=== PATIENT | female | born 1990 | race Caucasian/White ===

== ENCOUNTER 2016-12-06 22:25 | Emergency (ER) | payer MEDICAID ==
[~2016-12-06] VITALS: Ht 170.2 cm; Wt 167.4 kg
[~2016-12-06 22:25] MED LIST: ACET-62 PO; LEVE500T9 PO; WARF5TAB6 PO
--- OUTSIDE RECORDS SUMMARY | 2016-12-06 22:31 | XMS REPORT | Continuity of Care Document ---
Author Author [facility] Organization [facility] Address Unknown Phone Unavailable Care Team Providers Care J2Ee Android Developer Name Role Phone BREN MISSY Primary Care Physician [phone] Insurance Providers Guarantor Anusha Almazan Address [address] [place] [address] Email [email or web address] Payer [facility] Policy Number [id number] Subscriber's Name Anusha Almazan Tre Relationship 18 Self Effective Date 16 Expiration Date 16 Chief Complaint and Reason for Visit Chief Complaint Lower Extremity Pain Reason for Visit Left knee pain Problems Active Problems Medical Problem Onset Date Status Eclampsia Unknown Morbid (severe) obesity due to excess calories Unknown Supratherapeutic INR Unknown Past Problems Medical Problem Onset Date Anticoagulation goal of INR 2 to 3 Unknown Atypical chest pain Unknown Elevated INR Unknown Intercostal muscle pain Unknown Left knee pain Unknown Low back pain Unknown Mechanical back pain Unknown Patient left without being seen Unknown Placenta previa Unknown Unknown Unknown Pulmonary emboli Unknown Vaginal spotting Unknown Medications Current Home Medications Medication Dose Units Route Directions Days Qty Instructions Start Date Acetaminophen 500 Mg Tablet 1,000 Mg Oral Three Times A Day as needed for Pain 06/18/16 Levetiracetam (Keppra) 500 Mg Tablet 500 Mg Oral Twice A Day Warfarin Sodium 5 Mg Tablet 5 Mg Oral Daily 11/27/16 Past Home Medications Medication Directions Ordered Status Aspirin/Acetaminophen/Caffeine (Excedrin Extra Strength Caplet) 1 Each Tablet, 09/17/16 Discontinued Baclofen 10 Mg Tablet, 10 Mg Oral Three Times A Day 10/26/16 Discontinued Cyclobenzaprine Hcl 10 Mg Tablet, 10 Mg Oral Three Times A Day as needed for Muscle Spasm 06/23/16 Discontinued Diphenhydramine Hcl (Benadryl) 25 Mg Capsule, 2 Cap Oral Every 6 Hours Discontinued Hydrocodone/Acetaminophen ([place] 5-325 Tablet) 5-325 Tablet, 1 Tab Oral Every 4 Hours Prn 10/26/16 Discontinued Ibuprofen 200 Mg Tablet, 600 Mg Oral Every 6 Hours as needed for Pain Discontinued Nitrofurantoin Monohyd/M-Cryst (Macrobid 100 Mg Capsule) 100 Mg Capsule, 1 Cap Oral Twice Daily With Meals 10/26/16 Discontinued Social History Social History Problem Response Recorded Date/Time Onset Date Status Hx Substance Use No 12/01/2016 11:54pm Not Applicable Not Applicable Hx Alcohol Use No 12/01/2016 11:54pm Not Applicable Not Applicable Query Response Start Date Stop Date Smoking Status Never smoker Hospital Discharge Instructions No hospital discharge instructions. Plan of Care Discharge Date 12/01/16 11:59pm Disposition 01 DISCHARGED HOME, SELF-CARE Condition at Discharge Stable Instructions/Education Provided Knee Pain (ED) Prescriptions See Medication Section Referrals MISSY CORREIA Address: [address] [place] [id number] NILES RIGGINS APRN Address: [address] [place] [id number] Additional Instructions/Education Your ultrasound today was normal. I do want you to continue to take the Coumadin as prescribed. Follow up with Dr. Qureshi with [facility] this week with any further issues/concerns. Care Plan and Goals Physician Care Plan Problem:Left Knee Pain Goal: Follow up with primary care provider Instructions: Take medications and follow care plan as discussed/written Functional Status No functional status results. Allergies, Adverse Reactions, Alerts Allergen Type Severity Reaction Status Last Updated Morphine Allergy Unknown ITCHING Active 12/01/16 Phenylephrine Allergy Unknown Active 12/01/16 Cefaclor Allergy Unknown Active 12/01/16 Nalbuphine Allergy Unknown Active 12/01/16 Brompheniramine Allergy Unknown Active 12/01/16 Ceftriaxone Allergy Unknown Active 12/01/16 Immunizations Query Response on File Recorded Date/Time Hx Tetanus Toxoid Vaccination Yes 12/01/16 11:55pm DTaP Vaccine History 2016 12/01/16 11:54pm Influenza Vaccine Hx NOT YET THIS SEASON 11/30/16 6:44pm Tdap Vaccine Hx 201612/01/16 11:55pm Vital Signs Acute Vital Signs Vital Response Date/Time Temperature (Fahrenheit) 97.9 deg F (96.8 - 99.1) 12/01/2016 11:59pm Temperature (Calculated Celsius) 36.34215 degrees C (36.0 - 37.3) 12/01/2016 11:59pm Pulse Rate (adult) 74 bpm (60 - 100) 12/01/2016 11:59pm Respiratory Rate 20 breaths/min (10 - 20) 12/01/2016 11:59pm O2 Sat by Pulse Oximetry 97 % (90 - 100) 12/01/2016 11:59pm Blood Pressure 115/58 mm Hg 12/01/2016 11:59pm Height (Feet) 5 feet 12/01/2016 9:33pm Height (Inches) 7.00 inches 12/01/2016 9:33pm Weight (Kilograms) 167.900 kg 12/01/2016 9:33pm Body Mass Index (BMI) 57.0 12/01/2016 9:33pm Results Laboratory Results Test Name Result Units Flags Reference Collection Date/Time Result Date/ Time Comments Urinalysis Comment MICROSCOPIC NOT IND. 09/17/2016 10:08pm 2015 10:13pm Total Bilirubin 0.80 MG/DL 0.20-1.30 10/26/2016 1:00am 10/26/2016 1: 16am Alkaline Phosphatase 78 U/L 38-126 10/26/2016 1:00am 10/26/2016 1:16am Total Protein 7.2 G/DL 6.3-8.2 10/26/2016 1:00am 10/26/2016 1:16am Albumin 3.7 G/DL 3.5-5.0 10/26/2016 1:00am 10/26/2016 1:16am Globulin 3.5 G/DL 2.4-3.6 10/26/2016 1:00am 10/26/2016 1:16am Albumin/Globulin Ratio 1.1 RATIO 1.1-2.2 10/26/2016 1:00am 10/26/2016 1 :16am Aspartate Amino Transf (AST/SGOT) 20 U/L 14-36 10/26/2016 1:00am 2016 1:16am Alanine Aminotransferase (ALT/SGPT) 44 U/L 9-52 10/26/2016 1:00am 10/26 1:16am Urine Collection Type CLEANCATCH-MIDSTREAM 10/26/2016 12:52am 10/26 1:08am Urine Color YELLOW YELLOW 10/26/2016 12:52am 10/26/2016 1:08am Urine Turbidity CLEAR CLEAR 10/26/2016 12:52am 10/26/2016 1:08am Urine Specific [place] 1.020 1.015-1.025 10/26/2016 12:52am 2016 1:08am Urine pH 5.5 5.0-8.0 10/26/2016 12:52am 10/26/2016 1:08am Urine Leukocyte Esterase NEGATIVE NEGATIVE 10/26/2016 12:52am 2016 1:08am Urine Nitrite NEGATIVE NEGATIVE 10/26/2016 12:52am 10/26/2016 1:08am Urine Protein NEGATIVE NEGATIVE 10/26/2016 12:52am 10/26/2016 1:08am Urine Glucose (UA) NEGATIVE NEGATIVE 10/26/2016 12:52am 10/26/2016 1: 08am Urine Ketones NEGATIVE NEGATIVE 10/26/2016 12:52am 10/26/2016 1:08am Urine Urobilinogen 0.2 EU/DL NORMAL 10/26/2016 12:52am 10/26/2016 1: 08am Urine Bilirubin NEGATIVE NEGATIVE 10/26/2016 12:52am 10/26/2016 1: 08am Urine Blood 1+ A NEGATIVE 10/26/2016 12:52am 10/26/2016 1:08am Urine WBC NONE SEEN /HPF 0-5 10/26/2016 12:52am 10/26/2016 1:17am Urine RBC 1-3 /HPF 0-3 10/26/2016 12:52am 10/26/2016 1:17am Urine Bacteria NONE SEEN NEGATIVE 10/26/2016 12:52am 10/26/2016 1: 17am Urine Culture Indicated CULT NOT INDICATED 10/26/2016 12:52am 10/26 1:17am White Blood Count 8.3 T/MM3 4.5-11.0 11/10/2016 11:54pm 11/11/2016 12: 07am Red Blood Count 3.83 M/MM3 L 4.00-5.20 11/10/2016 11:54pm 11/11/2016 12: 07am Hemoglobin 10.2 GM/DL L 12-16 11/10/2016 11:54pm 11/11/2016 12:07am Hematocrit 32.2 % L 36-46 11/10/2016 11:54pm 11/11/2016 12:07am Mean Corpuscular Volume 84.1 UM3 80-100 11/10/2016 11:54pm 11/11/2016 12:07am Mean Corpuscular Hemoglobin 26.6 UUG 26-34 11/10/2016 11:54pm 2016 12:07am Mean Corpuscular Hemoglobin Concent 31.7 GM/DL 31-37 11/10/2016 11:54pm 11/11/2016 12:07am RDW Standard Deviation 40.4 FL 36.9-50.2 11/10/2016 11:54pm 11/11/2016 12:07am Platelet Count 311 T/MM3 130-400 11/10/2016 11:54pm 11/11/2016 12:07am Mean Platelet Volume 11.1 UM3 9.4-12.4 11/10/2016 11:54pm 11/11/2016 12 :07am Neutrophils (%) (Auto) 60.1 % 33-66 11/10/2016 11:54pm 11/11/2016 12: 07am Lymphocytes (%) (Auto) 33.0 % 23-45 11/10/2016 11:54pm 11/11/2016 12: 07am Monocytes (%) (Auto) 4.2 % 0-9.0 11/10/2016 11:54pm 11/11/2016 12:07am Eosinophils (%) (Auto) 2.4 % 0-4 11/10/2016 11:54pm 11/11/2016 12:07am Basophils (%) (Auto) 0.2 % 0-2 11/10/2016 11:54pm 11/11/2016 12:07am Immature Granulocyte % (Auto) 0.1 % 0.0-0.5 11/10/2016 11:54pm 2016 12:07am Absolute Neutrophils (auto) 5.0 T/MM3 1.8-7.7 11/10/2016 11:54pm 2016 12:07am Absolute Lymphocytes (auto) 2.7 T/MM3 1-4.8 11/10/2016 11:54pm 2016 12:07am Absolute Monocytes (auto) 0.4 T/MM3 0-0.8 11/10/2016 11:54pm 2016 12:07am Absolute Eosinophils (auto) 0.2 T/MM3 0-0.5 11/10/2016 11:54pm 2016 12:07am Absolute Basophils (auto) 0.0 T/MM3 0-0.2 11/10/2016 11:54pm 2016 12:07am Absolute Immature Granulocyte (auto 0.01 T/MM3 0.00-0.03 11/10/2016 11: 54pm 11/11/2016 12:07am D-Dimer 1362 NG/ML H 0-230 11/10/2016 11:54pm 11/11/2016 12:15am <230 NG/ML D-DU=PRESUMPTIVE NEGATIVE FOR PE OR DVT >230 NG/ML D-DU=ADDITIONAL EVAL FOR PE OR DVT RECOMMENDED Icterus Index < 2 0-7 11/11/2016 12:00am 11/11/2016 12:34am Chemistry Specimen Hemolysis < 15 0-25 11/11/2016 12:00am 11/11/2016 12:34am 0-25: Specimen Exhibited No Hemolysis. Turbidity < 20 0-20 11/11/2016 12:00am 11/11/2016 12:34am Sodium Level 146 MEQ/L H 134-144 11/11/2016 12:00am 11/11/2016 12:34am Potassium Level 3.4 MEQ/L L 3.6-5 11/11/2016 12:00am 11/11/2016 12:34am Chloride Level 108 MEQ/L H 98-107 11/11/2016 12:00am 11/11/2016 12:34am Carbon Dioxide Level 25 MEQ/L 22-30 11/11/2016 12:00am 11/11/2016 12: 34am Anion Gap 13 MEQ/L 5-15 11/11/2016 12:00am 11/11/2016 12:34am Blood Urea Nitrogen 18.0 MG/DL H 7-17 11/11/2016 12:00am 11/11/2016 12: 34am Creatinine 1.0 MG/DL 0.7-1.2 11/11/2016 12:00am 11/11/2016 12:34am BUN/Creatinine Ratio 18 RATIO 6-26 11/11/2016 12:00am 11/11/2016 12: 34am Glomerular Filtration Rate Calc 66 11/11/2016 12:00am 11/11/2016 12 :34am Glucose Level 81 MG/DL 65-110 11/11/2016 12:00am 11/11/2016 12:34am Calculated Osmolality 282 MOSM/KG H 261-280 11/11/2016 12:00am 2016 12:34am Calcium Level 8.8 MG/DL 8.4-10.2 11/11/2016 12:00am 11/11/2016 12:34am Prothromb Time International Ratio 2.18 H 0.76-1.04 12/01/2016 10:48pm 12/01/2016 10:55pm THERAPUTIC RANGE=2.00-3.00 FOR ANTI-THROMBOSIS THERAPUTIC RANGE=2.50-3.50 FOR IMPLANTED VALVE Procedures Procedure Status Date Provider(s) non-stress test Completed 09/05/16 Routine venipuncture Completed 09/17/16 non-stress test Completed 09/17/16 Comprehen metabolic panel Completed 09/17/16 Urinalysis auto w/o scope Completed 09/17/16 Complete cbc w/auto diff wbc Completed 09/17/16 non-stress test Completed 09/26/16 Routine venipuncture Completed 10/26/16 Comprehen metabolic panel Completed 10/26/16 Urinalysis auto w/scope Completed 10/26/16 Complete cbc w/auto diff wbc Completed 10/26/16 Ther/proph/diag inj iv push Completed 10/26/16 Emergency dept visit Completed 10/26/16 815753"INJECTION, ORPHENADRINE CITRATE, UP TO 60 MG" Completed 10/26/16 Routine venipuncture Completed 11/10/16 Chest x-ray 2vw frontal&latl Completed 11/10/16 Ct angiography chest Completed 11/10/16 Metabolic panel total ca Completed 11/10/16 Complete cbc w/auto diff wbc Completed 11/10/16 Fibrin degradation quant Completed 11/10/16 Electrocardiogram tracing Completed 11/10/16 Ther/proph/diag inj sc/im Completed 11/10/16 Ther/proph/diag inj sc/im Completed 11/10/16 Emergency dept visit Completed 11/10/16 [id number]"INJECTION, ENOXAPARIN SODIUM, 10 MG" Completed 11/10/16 [id number]"INFUSION, NORMAL SALINE SOLUTION , 250 CC" Completed 11/10/16 [id number]"LOW OSMOLAR CONTRAST MATERIAL, 300-399 MG/ML IODINE C Completed Routine venipuncture Completed 11/27/16 Chest x-ray 2vw frontal&latl Completed 11/27/16 Prothrombin time Completed 11/27/16 Electrocardiogram tracing Completed 11/27/16 Emergency dept visit Completed 11/27/16 Routine venipuncture Completed 11/29/16 Prothrombin time Completed 11/29/16 Emergency dept visit Completed 11/29/16 Encounters Encounter Location Arrival/Admit Date Discharge/Depart Date Attending Provider Departed Emergency Room [facility] 12/01/16 9:30pm 12/01/16 11: 59pm ROSHNI ALBA MD Departed Emergency Room [facility] 11/30/16 6:25pm 11/30/16 8: 25pm LUCIE GONZALES DO Departed Emergency Room [facility] 11/29/16 10:18am 11/29/16 11: 40am TONEY VICTORIA DO Departed Emergency Room [facility] 11/27/16 8:12pm 11/27/16 10: 34pm BENI DAVIDSON MD Departed Emergency Room [facility] 11/20/16 3:54pm 11/20/16 3: 58pm TONEY VICTORIA DO Departed Emergency Room [facility] 11/10/16 10:58pm 11/11/16 2: 37am RILEY HYLTON MD Departed Emergency Room [facility] 10/26/16 12:22am 10/26/16 1: 45am BENI DAVIDSON MD Departed [facility] 09/26/16 8:17pm 09/26/16 9:32pm ALTA VALENCIA MD Departed [facility] 09/17/16 9:04pm 09/17/16 10:37pm ALTA VALENCIA MD Departed [facility] 09/05/16 9:13pm 09/05/16 9:59pm MIKE LAURENT MD Recent Diagnosis
[2016-12-06 22:41] VITALS: BP 128/59; PULSE 73; RESP 19; TEMP 98.2; O2SAT 100; Ht 170.2 cm; Wt 167.4 kg
[2016-12-06] MEDS ORDERED: WARF2.5T73 PO (22:47)
--- NOTE | 2016-12-06 22:50 | ERPDOC ---
Departure Disposition Decision Date: Dec 06, 2016 Disposition Decision Time: 22:57 Disposition: 01 DISCHARGED HOME, SELF-CARE Impression Impression Impression: Primary Impression: Sciatic nerve pain Laterality: right Qualified Codes: M54.31 - Sciatica, right side Severity: Moderate Condition: Stable Seen By: Mid-level only Referrals: MISSY CORREIA (PCP) NILES RIGGINS APRN (Family) Patient Instructions: Sciatica (ED) Problems/Meds/Labs Reviewed?: Yes Medications reviewed and manag: Yes Additional Instructions: Take the Tylenol and the Flexeril as needed for the pain. This is most likely originating from your back. I do want you to do some stretching exercises at home focusing on her lower back. If this is not improving at all then please follow up with your primary care provider as you may need an MRI. Return to ER with any increased pain, fever, or new issues/concerns. Follow up care ordered?: Yes Mental Status: Alert HPI - Back Pain General Chief Complaint: Lower Extremity Pain Stated Complaint: HIP PAIN Time Seen by Provider: 22:39 Source: patient Exam Limitations: no limitations HPI - Back Pain Initial Comments She started having some pain in the right lower back region that wraps around the right hip to just the top of the thigh. This started yesterday. Has not really improved. Comes and goes in intensity and is worse with ambulation. She denies any numbness/tingling or weakness in the right leg. She has a history of chronic back pain and does have Flexeril at home. Has been taking Tylenol as needed for the pain. She is concerned about this pain since she recently has had some trouble with a PE and is on Coumadin. Occurred At: home Onset/Timing: Gradual Duration: other (Over the last 2 days) Severity/Quality: moderate Location: paraspinous muscles Radiation: buttocks (right buttock) 1 - area of pain Method of Injury/Context: unknown Associated Sypmtoms: DENIES: fever, loss of bladder control, loss of bowel control, lower back pain, muscle spasms, numbness in legs/feet, sensory/motor loss, tingling in legs/feet, weakness Hx of Similar Symptoms: Yes Allergies: Coded Allergies: brompheniramine (Verified Allergy, Unknown, 12/06/16) cefaclor (Verified Allergy, Unknown, 12/06/16) ceftriaxone (Verified Allergy, Unknown, 12/06/16) morphine (Verified Allergy, Unknown, ITCHING, 12/06/16) nalbuphine (Verified Allergy, Unknown, 12/06/16) phenylephrine (Verified Allergy, Unknown, 12/06/16) Past History Patient Surgical History Csection Past Medical History Respiratory: pulmonary embolus Surgical History Reproductive/: , hysterectomy Family History Family History: Negative Social History Smoking Status: Never smoker Does patient use chewing tobac: No Second Hand Exposure: No Substance Use Type: does not use Alcohol Intake: none Review of Systems Constitutional Constitutional: DENIES: chills, dizziness, fatigue, fever, weakness Cardiovascular Cardiac: DENIES: chest pain, orthopnea Rhythm/Rate: DENIES: irregular beat, palpitations Pulmonary Respiratory: DENIES: cough, dyspnea, sputum, tachypnea GI Upper Abdomen: DENIES: nausea, pain, vomiting Lower Abdomen: DENIES: constipation, diarrhea, pain General: DENIES: dysuria, frequency, urgency Musculoskeletal General: pain (right hip that wraps around the lateral hip and down the right buttock), tenderness (along the area of pain in the right hip/buttock region), DENIES: joint pain, joint swelling Integumentary Skin: DENIES: color change, lesion, rash Neurological General: DENIES: numbness, tingling, weakness Physical Exam General General Nourishment: well nourished, well developed, appears stated age, no acute distress, adult, obese General Body Habitus: well groomed Vitals and Pain First Documented Vital Signs Date Time Temp Pulse Resp B/P Pulse Ox O2 Delivery O2 Flow Rate FiO2 12/06/16 22:41 98.2 73 19 128/59 100 Room Air Weight: Kilograms: 167.400 Height (feet): 5 Height (inches): 7.00 Triage Pain Scale: RN VS reviewed by Provider: Yes Normal Exams: Neck: Full range of motion, without adenopathy, JVD, bruits or thyromegaly Chest/Resp: Clear all ledesma, with good airflow, and symmetry bilaterally CV: Regular rate and rhythm, without murmur or gallop, Pulses 2+ all extremities, capillary refill, <2 seconds all ext., no pedal edema noted Abdomen: Bowel sounds positive, soft, non-tender, non-distended, no hepatosplenomegaly, masses or bruits noted Lymphatic: No lymphadenopathy, or lymphedema noted Integumentary: No rashes, hives, or bruising noted Neurologic: Patient is alert, and oriented Psychiatric: Patient exhibits, appropriate attention, emotion and affect Musculoskeletal (brief) Musculoskeletal Brief: FOUND: tenderness (She does have TTP along the right lumbar spine and wraps around the right back over onto the right lateral hip and buttock region. Sensation in the RLE is intact with strength of 5/5. Right pedal pulse is 2+) Differential Diagnoses Considering: Fracture, Lumbar Sprain, Lumbar Strain, Other (sciatica) Progress Progress Progress She was recently evaluated for left knee pain. This improved 2 days ago and then had onset of the pain in the buttocks region. I do think it is likely that she has irritated her back due to the knee being painful. She has had CT in the past that does show DDD. I did offer her some [place] for pain but she declines. She will just take Tylenol a she cannot take NSAIDS due to Warfarin use. She does decline Rx for Flexeril as she still does have some at home. She will follow up with her PCP this week. SIMONE MONDRAGON APRN Dec 06, 2016 22:50
--- NOTE | 2016-12-06 23:14 | NUR ---
DEPARTURE PT COLLECTED BELONGINGS AND AMBULATED INDEPENDENTLY TO EXIT WITH SPOUSE, GAIT STEADY.
== END 2016-12-06 23:14 | disposition home or self-care (01) ==
LOC: ED 22:25
DX: M54.41 Lumbago with sciatica, right side (principal)

== ENCOUNTER 2016-12-07 13:51 | Emergency (ER) | payer MEDICAID ==
[~2016-12-07] VITALS: Ht 170.2 cm; Wt 160.0 kg
[~2016-12-07 13:51] MED LIST changes: +WARF2.5T73 PO
--- OUTSIDE RECORDS SUMMARY | 2016-12-07 13:56 | XMS REPORT | Continuity of Care Document ---
Author Author [facility] Organization [facility] Address Unknown Phone Unavailable Care Team Providers Care Outreach Educator Name Role Phone MISSY CORREIA Primary Care Physician [phone] Insurance Providers Guarantor Anusha Almazan Address [address] [place] [address] Email [email or web address] Payer [facility] Policy Number [id number] Subscriber's Name Anusha Almazan Tre Relationship 18 Self Effective Date 16 Expiration Date 16 Chief Complaint and Reason for Visit Chief Complaint Lower Extremity Pain Reason for Visit Sciatic nerve pain Problems Active Problems Medical Problem Onset Date Status Eclampsia Unknown Morbid (severe) obesity due to excess calories Unknown Pulmonary embolism Unknown Supratherapeutic INR Unknown Past Problems Medical Problem Onset Date Anticoagulation goal of INR 2 to 3 Unknown Atypical chest pain Unknown Elevated INR Unknown Intercostal muscle pain Unknown Left knee pain Unknown Low back pain Unknown Mechanical back pain Unknown Patient left without being seen Unknown Placenta previa Unknown Unknown Unknown Pulmonary emboli Unknown Sciatic nerve pain Unknown Vaginal spotting Unknown Medications Current Home Medications Medication Dose Units Route Directions Days Qty Instructions Start Date Acetaminophen 500 Mg Tablet 1,000 Mg Oral Three Times A Day as needed for Pain 06/18/16 Levetiracetam (Keppra) 500 Mg Tablet 500 Mg Oral Twice A Day Warfarin Sodium 2.5 Mg Tablet 2.5 Mg Oral //// Take 1 tablet , by mouth, 1 time a day (at 5 pm). 12/06/16 Warfarin Sodium 5 Mg Tablet 5 Mg Oral /Thu11/27/16 Past Home Medications Medication Directions Ordered Status Aspirin/Acetaminophen/Caffeine (Excedrin Extra Strength Caplet) 1 Each Tablet, 09/17/16 Discontinued Baclofen 10 Mg Tablet, 10 Mg Oral Three Times A Day 10/26/16 Discontinued Cyclobenzaprine Hcl 10 Mg Tablet, 10 Mg Oral Three Times A Day as needed for Muscle Spasm 06/23/16 Discontinued Diphenhydramine Hcl (Benadryl) 25 Mg Capsule, 2 Cap Oral Every 6 Hours Discontinued Hydrocodone/Acetaminophen ([place] 5-325 Tablet) 5-325 Tablet, 1 Tab Oral Every 4 Hours Prn 10/26/16 Discontinued Ibuprofen 200 Mg Tablet, 600 Mg Oral Every 6 Hours as needed for Pain Discontinued Nitrofurantoin Monohyd/M-Cryst (Macrobid 100 Mg Capsule) 100 Mg Capsule, 1 Cap Oral Twice Daily With Meals 10/26/16 Discontinued Social History Social History Problem Response Recorded Date/Time Onset Date Status Chewing Tobacco Status No 12/06/2016 10:47pm Not Applicable Not Applicable Hx Substance Use No 12/06/2016 10:47pm Not Applicable Not Applicable Hx Alcohol Use No 12/06/2016 10:47pm Not Applicable Not Applicable Query Response Start Date Stop Date Smoking Status Never smoker Hospital Discharge Instructions No hospital discharge instructions. Plan of Care Discharge Date 12/06/16 11:14pm Disposition 01 DISCHARGED HOME, SELF-CARE Condition at Discharge Stable Instructions/Education Provided Sciatica (ED) Prescriptions See Medication Section Referrals MISSY CORREIA Address: [address] [place] [id number] NILES RIGGINS APRN Address: [address] [place] [id number] Additional Instructions/Education Take the Tylenol and the Flexeril as needed for the pain. This is most likely originating from your back. I do want you to do some stretching exercises at home focusing on her lower back. If this is not improving at all then please follow up with your primary care provider as you may need an MRI. Return to ER with any increased pain, fever, or new issues/concerns. Care Plan and Goals Physician Care Plan Problem:Sciatica Goal: Follow up with primary care provider Instructions: Take medications and follow care plan as discussed/written Functional Status No functional status results. Allergies, Adverse Reactions, Alerts Allergen Type Severity Reaction Status Last Updated Morphine Allergy Unknown ITCHING Active 12/06/16 Phenylephrine Allergy Unknown Active 12/06/16 Cefaclor Allergy Unknown Active 12/06/16 Nalbuphine Allergy Unknown Active 12/06/16 Brompheniramine Allergy Unknown Active 12/06/16 Ceftriaxone Allergy Unknown Active 12/06/16 Immunizations Query Response on File Recorded Date/Time Hx Tetanus Toxoid Vaccination Yes 12/01/16 11:55pm DTaP Vaccine History 201512/06/16 10:47pm Influenza Vaccine Hx NOT YET THIS SEASON 12/06/16 10:47pm Tdap Vaccine Hx UTD PER PT 12/06/16 11:00pm Vital Signs Acute Vital Signs Vital Response Date/Time Temperature (Fahrenheit) 98.2 deg F (96.8 - 99.1) 12/06/2016 10:41pm Temperature (Calculated Celsius) 36.80361 degrees C (36.0 - 37.3) 12/06/2016 10:41pm Pulse Rate (adult) 73 bpm (60 - 100) 12/06/2016 10:41pm Respiratory Rate 19 breaths/min (10 - 20) 12/06/2016 10:41pm O2 Sat by Pulse Oximetry 100 % (90 - 100) 12/06/2016 10:41pm Blood Pressure 128/59 mm Hg 12/06/2016 10:41pm Height (Feet) 5 feet 12/06/2016 10:41pm Height (Inches) 7.00 inches 12/06/2016 10:41pm Weight (Kilograms) 167.400 kg 12/06/2016 10:41pm Body Mass Index (BMI) 57.0 12/06/2016 10:41pm Results Laboratory Results Test Name Result Units [...] CLEAR 10/26/2016 12:52am 10/26/2016 1:08am Urine Specific [place] 1.020 1.015-1.025 10/26/2016 12:52am 2016 1:08am Urine [...] IMPLANTED VALVE Procedures Procedure Status Date Provider(s) Routine venipuncture Completed 09/17/16 non-stress test Completed 09/17/16 Comprehen metabolic panel Completed 09/17/16 Urinalysis auto w/o scope Completed 09/17/16 Complete cbc w/auto diff wbc Completed 09/17/16 non-stress test Completed 09/26/16 Routine venipuncture Completed 10/26/16 Comprehen metabolic panel Completed 10/26/16 Urinalysis auto w/scope Completed 10/26/16 Complete cbc w/auto diff wbc Completed 10/26/16 Ther/proph/diag inj iv push Completed 10/26/16 Emergency dept visit Completed 10/26/16 808960"INJECTION, ORPHENADRINE CITRATE, UP TO 60 MG" Completed 10/26/16 Routine venipuncture Completed 11/10/16 Chest x-ray 2vw frontal&latl Completed 11/10/16 Ct angiography chest Completed 11/10/16 Metabolic panel total ca Completed 11/10/16 Complete cbc w/auto diff wbc Completed 11/10/16 Fibrin degradation quant Completed 11/10/16 Electrocardiogram tracing Completed 11/10/16 Ther/proph/diag inj sc/im Completed 11/10/16 Ther/proph/diag inj sc/im Completed 11/10/16 Emergency dept visit Completed 11/10/16 508595"INJECTION, ENOXAPARIN SODIUM, 10 MG" Completed 11/10/16 [id number]"INFUSION, NORMAL SALINE SOLUTION , 250 CC" Completed 11/10/16 [id number]"LOW OSMOLAR CONTRAST MATERIAL, 300-399 MG/ML IODINE C Completed Routine venipuncture Completed 11/27/16 Chest x-ray 2vw frontal&latl Completed 11/27/16 Prothrombin time Completed 11/27/16 Electrocardiogram tracing Completed 11/27/16 Emergency dept visit Completed 11/27/16 Routine venipuncture Completed 11/29/16 Prothrombin time Completed 11/29/16 Emergency dept visit Completed 11/29/16 Routine venipuncture Completed 11/30/16 Prothrombin time Completed 11/30/16 Emergency dept visit Completed 11/30/16 Routine venipuncture Completed 12/01/16 Prothrombin time Completed 12/01/16 Extremity study Completed 12/01/16 Emergency dept visit Completed 12/01/16 Encounters Encounter Location Arrival/Admit Date Discharge/Depart Date Attending Provider Departed Emergency Room [facility] 12/06/16 10:25pm 12/06/16 11: 14pm BENI DAVIDSON MD Departed Emergency Room [facility] 12/01/16 9:30pm 12/01/16 11: 59pm ROSHNI ALBA MD Departed Emergency Room [facility] 11/30/16 6:25pm 11/30/16 8: 25pm LUCIE GONZALES DO Departed Emergency Room [facility] 11/29/16 10:18am 11/29/16 11: 40am TONEY VICTORIA DO Departed Emergency Room [facility] 11/27/16 8:12pm 11/27/16 10: 34pm BENI DAVIDSON MD Departed Emergency Room [facility] 11/20/16 3:54pm 11/20/16 3: 58pm TONEY VICTORIA DO Departed Emergency Room [facility] 11/10/16 10:58pm 11/11/16 2: 37am RILEY HYLTON MD Departed Emergency Room [facility] 10/26/16 12:22am 10/26/16 1: 45am BENI DAVIDSON MD Departed Clinic [facility] 09/26/16 8:17pm 09/26/16 9:32pm ALTA VALENCIA MD Departed [facility] 09/17/16 9:04pm 09/17/16 10:37pm ALTA VALENCIA MD Recent Diagnosis
[2016-12-07 13:58] VITALS: BP 126/70; TEMP 98.2; Ht 170.2 cm; Wt 160.0 kg
--- NOTE | 2016-12-07 14:11 | NUR ---
PROVIDER DR ALBA IN TO SEE PATIENT.
--- NOTE | 2016-12-07 14:36 | NUR ---
QA REVIEWER IN ROOM IN TO TEST INR.
[2016-12-07 14:47] LABS: INR 1.9 (0.90-1.23); PROTHROMBIN TIME 22.6 SEC (10.8-13.8)
--- NOTE | 2016-12-07 15:01 | ERPDOC ---
Departure Disposition Decision Date: Dec 07, 2016 Disposition Decision Time: 15:07 Disposition: 01 DISCHARGED HOME, SELF-CARE Impression Impression Impression: Primary Impression: Pulmonary embolism Severity: Moderate Condition: Stable Seen By: Physician only Referrals: MISSY CORREIA (PCP) NILES RIGGINS APRN (Family) Patient Instructions: Nosebleed (ED) Problems/Meds/Labs Reviewed?: Yes Medications reviewed and manag: Yes Additional Instructions: Continue with current dosing of Coumadin, follow-up with your primary care provider. Follow up care ordered?: Yes Mental Status: Alert, Oriented [facility] General General Chief Complaint: Nosebleed Stated Complaint: NOSE./GUMS BLEEDING Time Seen by Provider: 14:02 [facility] General Initial Comments 18-year-old female presents status post nosebleed. She had a possibly a month ago and developed a wound dehiscence as well as pulmonary embolus. She now has a wound VAC and is on Coumadin. She has been very concerned about becoming too elevated or too low with her INR. She had a nosebleed earlier today that lasted for a couple minutes and then resolved. She also had gum bleeding when she brushed her teeth today. She is concerned that her INR is elevated and would like to have it checked. She has no other concerns at this time. Allergies: Coded Allergies: brompheniramine (Verified Allergy, Unknown, 12/07/16) cefaclor (Verified Allergy, Unknown, 12/07/16) ceftriaxone (Verified Allergy, Unknown, 12/07/16) morphine (Verified Allergy, Unknown, ITCHING, 12/07/16) nalbuphine (Verified Allergy, Unknown, 12/07/16) phenylephrine (Verified Allergy, Unknown, 12/07/16) Past History Patient Surgical History Csection Past Medical History Respiratory: pulmonary embolus PMH Comments Pulmonary embolus, dehiscence of Surgical History Reproductive/: , hysterectomy Social History Does patient use chewing tobac: No Second Hand Exposure: No Substance Use Type: does not use Alcohol Intake: none Record Review Pertinent history updated: Yes Review of Systems Pulmonary Respiratory: see HPI Integumentary Skin: see HPI All other Systems All Other Systems: Reviewed and Negative Physical Exam General General Nourishment: well nourished, well developed, appears stated age, no acute distress, obese Vitals and Pain First Documented Vital Signs Date Time Temp Pulse Resp B/P Pulse Ox O2 Delivery O2 Flow Rate FiO2 12/07/16 13:58 98.2 77 16 126/70 98 Room Air Weight: Kilograms: 160.000 Height (feet): 5 Height (inches): 7.00 Triage Pain Scale: Normal Exams: Head: Normocephalic w/o trauma Chest/Resp: Clear all ledesma, with good airflow, and symmetry bilaterally CV: Regular rate and rhythm, without murmur or gallop, Pulses 2+ all extremities, capillary refill, <2 seconds all ext., no pedal edema noted Abdomen: Bowel sounds positive, soft, non-tender, non-distended, no hepatosplenomegaly, masses or bruits noted Neurologic: Patient is alert, and oriented, cranial nerves, motor/sensory/ cerebellar, exams w/o gross deficits, to observation Psychiatric: Patient exhibits, appropriate attention, emotion and affect ENMT (brief) Comments No residual blood in Alfaro's or posterior oropharynx. Patient does have poor dentition with clot noted on left lower gum. Differential Diagnoses Considering: Other (elevated INR, nosebleed, bleeding gum) Progress Results/Orders Orders Procedure Category Date Status Time INR LAB 12/07/16 Complete Lab Results Laboratory Tests Test 12/07/16 14:43 Prothromb Time International Ratio 1.90 Progress Progress INR returns at 1.9. Recommend patient continue with current dosing and see her physician this week. She is welcome to follow up at any time. ROSHNI ALBA MD Dec 07, 2016 15:01
[2016-12-07 15:14] VITALS: PULSE 80; RESP 16; O2SAT 98
== END 2016-12-07 15:14 | disposition home or self-care (01) ==
LOC: ED 13:51
DX: R04.0 Epistaxis (principal); K06.8 Other specified disorders of gingiva and edentulous alveolar ridge; I26.99 Other pulmonary embolism without acute cor pulmonale; Z79.01 Long term (current) use of anticoagulants
CPT/HCPCS: 36416; 85610

== ENCOUNTER 2016-12-09 20:49 | Emergency (ER) | payer MEDICAID ==
[~2016-12-09] VITALS: Ht 170.2 cm; Wt 167.9 kg
[2016-12-09 21:03] VITALS: Ht 170.2 cm; Wt 167.9 kg
--- NOTE | 2016-12-09 21:55 | NUR ---
RETURN FROM XRAY
--- NOTE | 2016-12-09 22:20 | ERPDOC ---
Departure Disposition Decision Date: Dec 09, 2016 Disposition Decision Time: 22:22 Disposition: 01 DISCHARGED HOME, SELF-CARE Impression Impression Impression: Primary Impression: History of pulmonary embolus (PE) Additional Impression: Dyspnea Severity: Moderate Condition: Improved Seen By: Physician only Referrals: MISSY CORREIA (PCP) NILES RIGGINS APRN (Family) Patient Instructions: Pulmonary Embolism (DC) Problems/Meds/Labs Reviewed?: Yes Medications reviewed and manag: Yes Additional Instructions: We discussed, I have consult with case management to call you. They will help to set up follow-up appointments to manage the pulmonary embolus and the continuing pain that you are having. Follow up care ordered?: Yes Mental Status: Alert, Oriented HPI - Dyspnea General Chief Complaint: Chest Pain Stated Complaint: CHEST PAIN WHEN WALKING Time Seen by Provider: 20:51 HPI - Dyspnea Initial Comments 26-year-old female referred to the ED by her primary care physician. She has history of pulmonary embolus diagnosed approximately a month ago after a C- section which became infected. She is on Coumadin. Had an INR checked yesterday which was 1.8. Was increased and she is to recheck on Thursday. She developed chest pain while walking today, which got better when she sat down to rest. She has had many ER visits recently. No fever no chills. She does have a wound VAC in place for the dehiscence of her scar. Allergies: Coded Allergies: brompheniramine (Verified Allergy, Unknown, 12/09/16) cefaclor (Verified Allergy, Unknown, 12/09/16) ceftriaxone (Verified Allergy, Unknown, 12/09/16) morphine (Verified Allergy, Unknown, ITCHING, 12/09/16) nalbuphine (Verified Allergy, Unknown, 12/09/16) phenylephrine (Verified Allergy, Unknown, 12/09/16) Past History Patient Surgical History Csection Past Medical History Respiratory: pulmonary embolus Surgical History Reproductive/: , hysterectomy Social History Does patient use chewing tobac: No Second Hand Exposure: No Substance Use Type: does not use Alcohol Intake: none Record Review Pertinent history updated: Yes Review of Systems Pulmonary Respiratory: see HPI Physical Exam General General Nourishment: adult, obese General Body Habitus: well groomed Vitals and Pain Weight: Kilograms: Height (feet): 5 Height (inches): 7.00 Triage Pain Scale: Normal Exams: Chest/Resp: Clear all ledesma, with good airflow, and symmetry bilaterally CV: Regular rate and rhythm, without murmur or gallop, Pulses 2+ all extremities, capillary refill, <2 seconds all ext., no pedal edema noted Abdomen: Bowel sounds positive, soft, non-tender, non-distended, no hepatosplenomegaly, masses or bruits noted Neurologic: Patient is alert, and oriented, cranial nerves, motor/sensory/ cerebellar, exams w/o gross deficits, to observation Psychiatric: Patient exhibits, appropriate attention, emotion and affect Differential Diagnoses Considering: Acute Bronchitis, Acute Respiratory Failure, CHF, COPD Exacerbation, Pneumonia, Pulmonary Edema, Pulmonary Embolus Progress Results/Orders Orders Procedure Category Date Status Time Case Management CONS 12/09/16 Transmitted Consult 20:51 Troponin I W LAB 12/09/16 Complete Hemolysis Index Chest, Pa & Lateral RAD 12/09/16 Taken Lab Results Laboratory Tests Test 12/09/16 21:44 Troponin I < 0.012ng/ml Chemistry Specimen Hemolysis < 15 Progress Progress Troponin negative, chest x-ray appears normal. Patient had a very small peripheral pulmonary embolus, this may cause her some pain as it heals and is most likely the etiology of tonight's discomfort. We discussed setting a weekly appointment with her primary care provider to try and avoid ER visits. She is in favor of this. I did offer to consult case management and she is in agreement with that. At this point patient is stable and doing well she is welcome to return any time. She had no chest pain or shortness of breath at time of discharge. ROSHNI ALBA MD Dec 09, 2016 22:20
[2016-12-09 22:30] VITALS: BP 126/70; PULSE 75; RESP 22; TEMP 98.8; O2SAT 100
--- NOTE | 2016-12-09 22:30 | NUR ---
DEPART PT IS GIVEN DISMISSAL INSTRUCTIONS WITH VERBAL UNDERSTANDING. PT LEAVES AMBULATORY WITH FAMILY TO ED REGISTRATION DESK
--- NOTE | 2016-12-10 07:59 | DI ---
INDICATION: ITS.REASON: dyspnea PROCEDURE: CHEST 2-VIEWS UPRIGHT (PA \T\ LAT) Encounter: Initial COMPARISON: November 27, 2016 FINDINGS: The lungs are clear without evidence of focal abnormal airspace opacity. There is no pleural effusion or pneumothorax. The heart size, mediastinal contours and pulmonary vascularity are within normal limits. There is no significant skeletal abnormality. IMPRESSION: No acute cardiopulmonary disease. .
--- NOTE | 2016-12-11 13:46 | NUR ---
ED FOLLOW UP THIS WORKER MET WITH PT ON THIS DATE. THIS WORKER INTRODUCED SELF. PT REPORTED THAT SHE WAS GOING TO CALL [facility] TODAY TO GET INTO THE OFFICE ONCE PER WEEK. THIS WORKER REVIEWED ABILITY TO [facility] THE [facility]. PT REPORTED THAT OF RIGHT NOW SHE DOESN'T HAVE A CO PAY BUT THAT SHE WILL SOON HER [employer] EXPIRES AT THE END OF THE MONTH AND SHE WILL TRANSITION TO [employer] WITH A 20 DOLLAR CO-PAY. PT REPORTED THAT SHE WOULD BE ABLE TO AFFORD THE CO PAY. PT REPORTED THAT SHE HAD APPOINTMENT WITH HER OB LAST WEEK AND ANOTHER APPOINTMENT NEXT WEEK. STILL HAS THE WOUND VAC. HER WOUND IS NOT HEALING VERY WELL. PT REPORTED THAT SHE HAD AN EEG AND BLOOD WORK TODAY IN [place]. THIS WORKER DISCUSSED ABILITY TO GET TO FOLLOW UP APPOINTMENTS WITH DOCTORS. PT DENIED NEEDS. THIS WORKER OFFERED TO ASSIST PT IN GETTING APPOINTMENTS SET UP WITH [facility]. PT DECLINED STATING THAT SHE WOULD DO THIS AND THAT SHE WOULD LET ME KNOW IF SHE NEEDED ANY HELP. PT WAS THANKFUL FOR PHONE CALL. CONTACT INFORMATION PROVIDED TO PT. Addendum: 12/11/16 at 1352 by SERA CLEMONS Amended: Links added.
== END 2016-12-09 22:30 | disposition home or self-care (01) ==
LOC: ED 20:49
DX: R07.9 Chest pain, unspecified (principal); R06.00 Dyspnea, unspecified; Z86.711 Personal history of pulmonary embolism; Z79.01 Long term (current) use of anticoagulants
CPT/HCPCS: 36415; 84484

== ENCOUNTER 2016-12-19 12:55 | Emergency (ER) | payer MEDICAID ==
[~2016-12-19] VITALS: Ht 170.2 cm; Wt 164.0 kg
--- OUTSIDE RECORDS SUMMARY | 2016-12-19 13:00 | XMS REPORT | Continuity of Care Document ---
Author Author [facility] Organization [facility] Address Unknown Phone Unavailable Care Team Providers Care Repairer Wood Furniture Name Role Phone CORREIAMISSY RUVALCABA Primary Care Physician [phone] Insurance Providers Guarantor Anusha Almazan Address [address] [place] [address] Email [email or web address] Payer [facility] Policy Number [id number] Subscriber's Name Anusha Almazan Relationship 18 Self Effective Date 16 Expiration Date 16 Advance Directives Directive Response Recorded Date/Time Advanced Directives Type None 12/09/16 9:03pm Chief Complaint and Reason for Visit Chief Complaint Chest Pain Reason for Visit [id number] Dyspnea Problems Active Problems Medical Problem Onset Date Status Eclampsia Unknown Morbid (severe) obesity due to excess calories Unknown Supratherapeutic INR Unknown Past Problems Medical Problem Onset Date Anticoagulation goal of INR 2 to 3 Unknown Atypical chest pain Unknown Dyspnea Unknown Elevated INR Unknown History of pulmonary embolus (PE) Unknown Intercostal muscle pain Unknown Left knee pain Unknown Low back pain Unknown Mechanical back pain Unknown Patient left without being seen Unknown Placenta previa Unknown Unknown Unknown Pulmonary emboli Unknown Pulmonary embolism Unknown Sciatic nerve pain Unknown Vaginal spotting Unknown Medications Current Home Medications Medication Dose Units Route Directions Days Qty Instructions Start Date Acetaminophen 500 Mg Tablet 500 Mg Oral Every 4 Hours as needed for Pain 06/18/16 Levetiracetam (Keppra) 500 Mg Tablet 250 Mg Oral Twice A Day Warfarin Sodium 2.5 Mg Tablet 2.5 Mg Oral [email or web address] Warfarin Sodium 5 Mg Tablet 5 Mg Oral [email or web address] 11/27/16 Past Home Medications Medication Directions Ordered [...] Cap Oral Every 6 Hours Discontinued Hydrocodone/Acetaminophen ([place] 5-325 Tablet) 5-325 Tablet, 1 Tab Oral Every 4 Hours Prn 10/26/16 Discontinued Ibuprofen 200 Mg Tablet, 600 Mg Oral Every 6 Hours as needed for Pain Discontinued Nitrofurantoin Monohyd/M-Cryst (Macrobid 100 Mg Capsule) 100 Mg Capsule, 1 Cap Oral Twice Daily With Meals 10/26/16 Discontinued Social History Social History Problem Response Recorded Date/Time Onset Date Status Hx Substance Use No 12/09/2016 9:58pm Not Applicable Not Applicable Hx Alcohol Use No 12/09/2016 9:58pm Not Applicable Not Applicable Query Response Start Date Stop Date Smoking Status Never smoker Hospital Discharge Instructions No hospital discharge instructions. Plan of Care Discharge Date 12/09/16 10:30pm Disposition 01 DISCHARGED HOME, SELF-CARE Condition at Discharge Improved Instructions/Education Provided Pulmonary Embolism (DC) Prescriptions See Medication Section Referrals MISSY CORREIA Address: [address] [place] [id number] NILES RIGGINS APRN Address: [address] [place] [phone] Additional Instructions/Education We discussed, I have consult with case management to call you. They will help to set up follow-up appointments to manage the pulmonary embolus and the continuing pain that you are having. Functional Status No functional status results. Allergies, Adverse Reactions, Alerts Allergen Type Severity Reaction Status Last Updated Morphine Allergy Unknown ITCHING Active 12/09/16 Phenylephrine Allergy Unknown Active 12/09/16 Cefaclor Allergy Unknown Active 12/09/16 Nalbuphine Allergy Unknown Active 12/09/16 Brompheniramine Allergy Unknown Active 12/09/16 Ceftriaxone Allergy Unknown Active 12/09/16 Immunizations Query Response on File Recorded Date/Time Hx Tetanus Toxoid Vaccination Yes 12/01/16 11:55pm DTaP Vaccine History 201512/09/16 9:58pm Influenza Vaccine Hx NOT YET THIS SEASON 12/09/16 9:58pm Tdap Vaccine Hx UTD PER PT 12/06/16 11:00pm Vital Signs Acute Vital Signs Vital Response Date/Time Temperature (Fahrenheit) 98.8 deg F (96.8 - 99.1) 12/09/2016 10:30pm Temperature (Calculated Celsius) 37.44256 degrees C (36.0 - 37.3) 12/09/2016 10:30pm Pulse Rate (adult) 75 bpm (60 - 100) 12/09/2016 10:30pm Respiratory Rate 22 breaths/min (10 - 20) 12/09/2016 10:30pm O2 Sat by Pulse Oximetry 100 % (90 - 100) 12/09/2016 10:30pm Blood Pressure 126/70 mm Hg 12/09/2016 10:30pm Height (Feet) 5 feet 12/09/2016 9:03pm Height (Inches) 7.00 inches 12/09/2016 9:03pm Weight (Kilograms) 167.900 kg 12/09/2016 9:03pm Body Mass Index (BMI) 57.0 12/09/2016 9:03pm Results Laboratory Results Test Name Result Units [...] CLEAR 10/26/2016 12:52am 10/26/2016 1:08am Urine Specific [place] 1.020 1.015-1.025 10/26/2016 12:52am 2016 1:08am Urine [...] < 2 0-7 11/11/2016 12:00am 11/11/2016 12:34am Turbidity < 20 0-20 11/11/2016 12:00am 11/11/2016 [...] 12:00am 11/11/2016 12:34am Prothromb Time International Ratio 1.90 H 0.90-1.23 12/07/2016 2:43pm 12/07/2016 2:48pm THERAPUTIC RANGE=2.00-3.00 FOR ANTI-THROMBOSIS THERAPUTIC RANGE=2.50-3.50 FOR IMPLANTED VALVE Chemistry Specimen Hemolysis < 15 0-25 12/09/2016 9:44pm 12/09/2016 10:09pm 0-25: Specimen Exhibited No Hemolysis. Troponin I < 0.012 ng/ml 0-0.12 12/09/2016 9:44pm 12/09/2016 10:09pm Troponin values with a difference of 55% increase from orginal troponin value represent a true biological DELTA value. (%increase Calc=Orginal Troponin value, divided by subsequent Troponin value, multiplied by 100) Procedures Procedure Status Date Provider(s) Routine venipuncture [...] Completed 10/26/16 Emergency dept visit Completed 10/26/16 203663"INJECTION, ORPHENADRINE CITRATE, UP TO 60 MG" Completed 10/26/16 Routine venipuncture Completed 11/10/16 Chest x-ray 2vw frontal&latl Completed 11/10/16 Ct angiography chest Completed 11/10/16 Metabolic panel total ca Completed 11/10/16 Complete cbc w/auto diff wbc Completed 11/10/16 Fibrin degradation quant Completed 11/10/16 Electrocardiogram tracing Completed 11/10/16 Ther/proph/diag inj sc/im Completed 11/10/16 Ther/proph/diag inj sc/im Completed 11/10/16 Emergency dept visit Completed 11/10/16 909363"INJECTION, ENOXAPARIN SODIUM, 10 MG" Completed 11/10/16 153961"INFUSION, NORMAL SALINE SOLUTION , 250 CC" Completed 11/10/16 [id number]"LOW OSMOLAR CONTRAST MATERIAL, 300-399 MG/ML IODINE C [...] Discharge/Depart Date Attending Provider Departed Emergency Room [facility] 12/09/16 8:49pm 12/09/16 10: 30pm ROSHNI ALBA MD Departed Emergency Room [facility] 12/07/16 1:51pm 12/07/16 3: 14pm ROSHNI ALBA MD Departed Emergency Room [facility] 12/06/16 10:25pm 12/06/16 11: 14pm BENI DAVIDSON MD Departed Emergency Room [facility] 12/01/16 9:30pm 12/01/16 11: 59pm ROSHNI ALBA MD Departed Emergency Room [facility] 11/30/16 6:25pm 11/30/16 8: 25pm LUCIE GONZALES DO Departed Emergency Room [facility] 11/29/16 10:18am 11/29/16 11: 40am TONEY VICTORIA DO Departed Emergency Room [facility] 11/27/16 8:12pm 11/27/16 10: 34pm BENI DAVIDSON MD Departed Emergency Room [facility] 11/20/16 3:54pm 11/20/16 3: 58pm TONEY VICTORIA DO Departed Emergency Room [facility] 11/10/16 10:58pm 11/11/16 2: 37am RILEY HYLTON MD Departed Emergency Room [facility] 10/26/16 12:22am 10/26/16 1: 45am BENI DAVIDSON MD Departed [facility] 09/26/16 8:17pm 09/26/16 9:32pm ALTA VALENCIA MD Departed [facility] 09/17/16 9:04pm 09/17/16 10:37pm ALTA VALENCIA MD Recent Diagnosis
--- OUTSIDE RECORDS SUMMARY | 2016-12-19 13:00 | XMS REPORT | Continuity of Care Document ---
Author Author [facility] Organization [facility] Address Unknown Phone Unavailable Care Team Providers Care Hadoop Java Developer Name Role Phone CORREIA MISSY Primary Care Physician [phone] Insurance Providers Guarantor Anusha Almazan Address [address] [place] [address] Email [email or web address] Payer [facility] Policy Number [id number] Subscriber's Name Anusha Almazan Tre Relationship 18 Self Effective Date 16 Expiration Date 16 Chief Complaint and Reason for Visit Chief Complaint Nosebleed Reason for Visit Pulmonary embolism Problems Active Problems Medical Problem Onset Date [...] Cap Oral Every 6 Hours Discontinued Hydrocodone/Acetaminophen ([place] 5-325 Tablet) 5-325 Tablet, 1 Tab Oral Every 4 Hours Prn 10/26/16 Discontinued Ibuprofen 200 Mg Tablet, 600 Mg Oral Every 6 Hours as needed for Pain Discontinued Nitrofurantoin Monohyd/M-Cryst (Macrobid 100 Mg Capsule) 100 Mg Capsule, 1 Cap Oral Twice Daily With Meals 10/26/16 Discontinued Social History Social History Problem Response Recorded Date/Time Onset Date Status Hx Substance Use No 12/07/2016 2:05pm Not Applicable Not Applicable Hx Alcohol Use No 12/07/2016 2:05pm Not Applicable Not Applicable Query Response Start Date Stop Date Smoking Status Never smoker Hospital Discharge Instructions No hospital discharge instructions. Plan of Care Discharge Date 12/07/16 3:14pm Disposition 01 DISCHARGED HOME, SELF-CARE Condition at Discharge Stable Instructions/Education Provided Nosebleed (ED) Prescriptions See Medication Section Referrals MISSY CORREIA Address: [address] [place] [address] NILES RIGGINS APRN Address: [address] [place], [place] [id number] Additional Instructions/Education Continue with current dosing of Coumadin, follow-up with your primary care provider. Functional Status No functional status results. Allergies, Adverse Reactions, Alerts Allergen Type Severity Reaction Status Last Updated Morphine Allergy Unknown ITCHING Active 12/07/16 Phenylephrine Allergy Unknown Active 12/07/16 Cefaclor Allergy Unknown Active 12/07/16 Nalbuphine Allergy Unknown Active 12/07/16 Brompheniramine Allergy Unknown Active 12/07/16 Ceftriaxone Allergy Unknown Active 12/07/16 Immunizations Query Response on File Recorded Date/Time Hx Tetanus Toxoid Vaccination Yes 12/01/16 11:55pm DTaP Vaccine History 2016 12/07/16 2:05pm Influenza Vaccine Hx NOT YET THIS SEASON 12/07/16 2:05pm Tdap Vaccine Hx UTD PER PT 12/06/16 11:00pm Vital Signs Acute Vital Signs Vital Response Date/Time Temperature (Fahrenheit) 98.2 deg F (96.8 - 99.1) 12/07/2016 1:58pm Temperature (Calculated Celsius) 36.56810 degrees C (36.0 - 37.3) 12/07/2016 1:58pm Pulse Rate (adult) 77 bpm (60 - 100) 12/07/2016 1:58pm Respiratory Rate 16 breaths/min (10 - 20) 12/07/2016 1:58pm O2 Sat by Pulse Oximetry 98 % (90 - 100) 12/07/2016 1:58pm Blood Pressure 126/70 mm Hg 12/07/2016 1:58pm Height (Feet) 5 feet 12/07/2016 1:58pm Height (Inches) 7.00 inches 12/07/2016 1:58pm Weight (Kilograms) 160.000 kg 12/07/2016 1:58pm Body Mass Index (BMI) 55.0 12/07/2016 1:58pm Results Laboratory Results Test Name Result Units [...] CLEAR 10/26/2016 12:52am 10/26/2016 1:08am Urine Specific [place] 1.020 1.015-1.025 10/26/2016 12:52am 2016 1:08am Urine [...] Completed 10/26/16 Emergency dept visit Completed 10/26/16 [id number]"INJECTION, ORPHENADRINE CITRATE, UP TO 60 MG" Completed 10/26/16 Routine venipuncture Completed 11/10/16 Chest x-ray 2vw frontal&latl Completed 11/10/16 Ct angiography chest Completed 11/10/16 Metabolic panel total ca Completed 11/10/16 Complete cbc w/auto diff wbc Completed 11/10/16 Fibrin degradation quant Completed 11/10/16 Electrocardiogram tracing Completed 11/10/16 Ther/proph/diag inj sc/im Completed 11/10/16 Ther/proph/diag inj sc/im Completed 11/10/16 Emergency dept visit Completed 11/10/16"INJECTION, ENOXAPARIN SODIUM, 10 MG" Completed 11/10/16"INFUSION, NORMAL SALINE SOLUTION , 250 CC" Completed 11/10/16"LOW OSMOLAR CONTRAST MATERIAL, 300-399 MG/ML IODINE C [...] Discharge/Depart Date Attending Provider Departed Emergency Room [facility] 12/07/16 1:51pm 12/07/16 3: 14pm ROSHNI ALBA MD Departed Emergency Room [facility] 12/06/16 10:25pm 12/06/16 11: 14pm BENI DAVIDSON MD Departed Emergency Room [facility] 12/01/16 9:30pm 12/01/16 11: 59pm ROSHNI ALBA MD Departed Emergency Room [facility] 11/30/16 6:25pm 11/30/16 8: 25pm LUCIE GONZALES DO Departed Emergency Room [facility] 11/29/16 10:18am 11/29/16 11: 40am TONEY VICTORIA DO Departed Emergency Room [facility] 11/27/16 8:12pm 11/27/16 10: 34pm BENI DAVIDSON MD Departed Emergency Room [facility] 11/20/16 3:54pm 11/20/16 3: 58pm TONEY VICTORIA DO Departed Emergency Room [facility] 11/10/16 10:58pm 11/11/16 2: 37am RILEY HYLTON MD Departed Emergency Room [facility] 10/26/16 12:22am 10/26/16 1: 45am BENI DAVIDSON MD Departed [facility] 09/26/16 8:17pm 09/26/16 9:32pm ALTA VALENCIA MD Departed [facility] 09/17/16 9:04pm 09/17/16 10:37pm ALTA VALENCIA MD Recent Diagnosis
[2016-12-19 13:05] VITALS: TEMP 98.7; Ht 170.2 cm; Wt 164.0 kg
--- NOTE | 2016-12-19 14:47 | ERPDOC ---
Departure Disposition Decision Date: Dec 19, 2016 Disposition Decision Time: 14:52 Disposition: 01 DISCHARGED HOME, SELF-CARE Impression Impression Impression: Primary Impression: Bleeding gums Severity: Moderate Condition: Stable Seen By: Physician only Referrals: MISSY CORREIA (PCP) NILES RIGGINS APRN (Family) Patient Instructions: Nosebleed (ED) Problems/Meds/Labs Reviewed?: Yes Medications reviewed and manag: Yes Follow up care ordered?: Yes Mental Status: Alert, Oriented HPI - General Medical General Chief Complaint: General Stated Complaint: GUMS ARE BLEEDING Time Seen by Provider: 14:39 HPI - General Medical Initial Comments 26-year-old female with bleeding gums. Patient is taking Coumadin for postprocedural pulmonary embolus. She has had a dehiscence of wound and is on wound VAC. She just recently had an I&D performed to remove excess suture. Her INR is 2.1 as of yesterday. She noted some blood on her teeth today could not find the source. She blew her nose and noted some blood coming out of her nose, but this stopped soon. No dizziness, no weakness. Allergies: Coded Allergies: brompheniramine (Verified Allergy, Unknown, 12/09/16) cefaclor (Verified Allergy, Unknown, 12/09/16) ceftriaxone (Verified Allergy, Unknown, 12/09/16) morphine (Verified Allergy, Unknown, ITCHING, 12/09/16) nalbuphine (Verified Allergy, Unknown, 12/09/16) phenylephrine (Verified Allergy, Unknown, 12/09/16) Past History Patient Surgical History Csection Past Medical History Respiratory: pulmonary embolus Surgical History Reproductive/: , hysterectomy Social History Does patient use chewing tobac: No Second Hand Exposure: No Substance Use Type: does not use Alcohol Intake: none Record Review Pertinent history updated: Yes Review of Systems ENMT Sinuses: see HPI Nose: see HPI Teeth: see HPI Integumentary Skin: see HPI All other Systems All Other Systems: Reviewed and Negative Physical Exam General General Nourishment: well nourished, no acute distress, adult, obese General Body Habitus: well groomed Vitals and Pain First Documented Vital Signs Date Time Temp Pulse Resp B/P Pulse Ox O2 Delivery O2 Flow Rate FiO2 12/19/16 13:05 98.7 76 20 134/92 98 Weight: Kilograms: 164.000 Height (feet): 5 Height (inches): 7.00 Triage Pain Scale: Normal Exams: Head: Normocephalic w/o trauma Chest/Resp: Clear all ledesma, with good airflow, and symmetry bilaterally CV: Regular rate and rhythm, without murmur or gallop, Pulses 2+ all extremities, capillary refill, <2 seconds all ext., no pedal edema noted Neurologic: Patient is alert, and oriented, cranial nerves, motor/sensory/ cerebellar, exams w/o gross deficits, to observation Psychiatric: Patient exhibits, appropriate attention, emotion and affect ENMT (brief) Comments No blood noted in teeth, however patient does have very poor dentition with significant plaque build-up present on the front teeth upper and lower. Gum appears like it would very easily bleed in the lower frontal area. Nares were examined, there was a slight residual of blood there, however no active bleeding noted. Differential Diagnoses Considering: Medication Effect, Other Progress Progress Progress Patient's INR is appropriate, gum bleeding and occasional nosebleeds certainly are appropriate with this medication as well. Therefore this may be a normal response. We discussed using ice water in her mouth to help if she is having bruising from the gums, and being patient with losing of blood as it can be normal on the Coumadin. However she is also welcome to come in and have her INR checked if needed or to go through her primary care provider. This may also have been a posterior nasal bleed. ROSHNI ALBA MD Dec 19, 2016 14:47
[2016-12-19 15:05] VITALS: BP 119/59; PULSE 66; RESP 18; O2SAT 99
== END 2016-12-19 15:05 | disposition home or self-care (01) ==
LOC: ED 12:55
DX: K06.8 Other specified disorders of gingiva and edentulous alveolar ridge (principal)

== ENCOUNTER 2017-01-16 23:34 | Emergency (ER) | payer SELFPAY ==
[~2017-01-16] VITALS: Ht 170.2 cm; Wt 164.1 kg
[~2017-01-16 23:34] MED LIST changes: -LEVE500T9 PO
[2017-01-16 23:37] VITALS: Ht 170.2 cm; Wt 164.1 kg
--- OUTSIDE RECORDS SUMMARY | 2017-01-16 23:39 | XMS REPORT | Continuity of Care Document ---
Author Author [facility] Organization [facility] Address Unknown Phone Unavailable Care Team Providers Care Bank Teller Name Role Phone CORREIAMISSY RUVALCABA Primary Care Physician [phone] Insurance Providers Guarantor Anusha Almazan Address [address] [place] [address] Email [email or web address] Payer [facility] Policy Number [id number] Subscriber's Name Anusha Almazan Relationship 18 Self Effective Date 16 Expiration Date 16 Advance Directives Directive Response Recorded Date/Time Advanced Directives Type None 12/19/16 2:19pm Chief Complaint and Reason for Visit Chief Complaint General Reason for Visit Bleeding gums Problems Active Problems Medical Problem Onset Date Status Eclampsia Unknown Morbid (severe) obesity due to excess calories Unknown Supratherapeutic INR Unknown VTE (venous thromboembolism) Unknown Past Problems Medical Problem Onset Date Anticoagulation goal of INR 2 to 3 Unknown Atypical chest pain Unknown Bleeding gums Unknown Dyspnea Unknown Elevated INR Unknown History [...] 4 Hours as needed for Pain 06/18/16 Warfarin Sodium 2.5 Mg Tablet 2.5 Mg [...] Cap Oral Every 6 Hours Discontinued Hydrocodone/Acetaminophen ([place] 5-325 Tablet) 5-325 Tablet, 1 Tab Oral Every 4 Hours Prn 10/26/16 Discontinued Ibuprofen 200 Mg Tablet, 600 Mg Oral Every 6 Hours as needed for Pain Discontinued Nitrofurantoin Monohyd/M-Cryst (Macrobid 100 Mg Capsule) 100 Mg Capsule, 1 Cap Oral Twice Daily With Meals 10/26/16 Discontinued Social History Social History Problem Response Recorded Date/Time Onset Date Status Hx Substance Use No 12/19/2016 2:20pm Not Applicable Not Applicable Hx Alcohol Use No 12/19/2016 2:20pm Not Applicable Not Applicable Query Response Start Date Stop Date Smoking Status Never smoker Hospital Discharge Instructions No hospital discharge instructions. Plan of Care Discharge Date 12/19/16 3:05pm Disposition 01 DISCHARGED HOME, SELF-CARE Condition at Discharge Stable Instructions/Education Provided Nosebleed (ED) Prescriptions See Medication Section Referrals MISSY CORREIA Address: [address] [place] [address] NILES RIGGINS APRN Address: [address] [place] [phone] Functional Status No functional status results. Allergies, [...] Yes 12/01/16 11:55pm DTaP Vaccine History 2016 12/19/16 2:20pm Influenza Vaccine Hx NOT YET THIS SEASON 12/19/16 2:20pm Tdap Vaccine Hx UTD PER PT 12/06/16 11:00pm Vital Signs Acute Vital Signs Vital Response Date/Time Temperature (Fahrenheit) 98.7 deg F (96.8 - 99.1) 12/19/2016 1:05pm Temperature (Calculated Celsius) 37.41299 degrees C (36.0 - 37.3) 12/19/2016 1:05pm Pulse Rate (adult) 66 bpm (60 - 100) 12/19/2016 3:05pm Respiratory Rate 18 breaths/min (10 - 20) 12/19/2016 3:05pm O2 Sat by Pulse Oximetry 99 % (90 - 100) 12/19/2016 3:05pm Blood Pressure 119/59 mm Hg 12/19/2016 3:05pm Height (Feet) 5 feet 12/19/2016 1:05pm Height (Inches) 7.00 inches 12/19/2016 1:05pm Weight (Kilograms) 164.000 kg 12/19/2016 1:05pm Body Mass Index (BMI) 56.0 12/19/2016 1:05pm Results Laboratory Results Test Name Result Units Flags Reference Collection Date/Time Result Date/ Time Comments Total Bilirubin 0.80 MG/DL 0.20-1.30 10/26/2016 1:00am [...] CLEAR 10/26/2016 12:52am 10/26/2016 1:08am Urine Specific [place] 1.020 1.015-1.025 10/26/2016 12:52am 2016 1:08am Urine [...] by 100) Procedures Procedure Status Date Provider(s) non-stress test Completed 09/26/16 Routine venipuncture Completed 10/26/16 Comprehen metabolic panel Completed 10/26/16 Urinalysis auto w/scope Completed 10/26/16 Complete cbc w/auto diff wbc Completed 10/26/16 Ther/proph/diag inj iv push Completed 10/26/16 Emergency dept visit Completed 10/26/16 [id number]"INJECTION, ORPHENADRINE CITRATE, UP TO 60 MG" Completed 10/26/16 Routine venipuncture Completed 11/10/16 Chest x-ray 2vw frontal&latl Completed 11/10/16 Ct angiography chest Completed 11/10/16 Metabolic panel total ca Completed 11/10/16 Complete cbc w/auto diff wbc Completed 11/10/16 Fibrin degradation quant Completed 11/10/16 Electrocardiogram tracing Completed 11/10/16 Ther/proph/diag inj sc/im Completed 11/10/16 Ther/proph/diag inj sc/im Completed 11/10/16 Emergency dept visit Completed 11/10/16 [id number]"INJECTION, ENOXAPARIN SODIUM, 10 MG" Completed 11/10/16 123858"INFUSION, NORMAL SALINE SOLUTION , 250 CC" Completed [...] Completed 12/01/16 Emergency dept visit Completed 12/01/16 Emergency dept visit Completed 12/06/16 Capillary blood draw Completed 12/07/16 Prothrombin time Completed 12/07/16 Emergency dept visit Completed 12/07/16 Routine venipuncture Completed 12/09/16 Chest x-ray 2vw frontal&latl Completed 12/09/16 Assay of troponin quant Completed 12/09/16 Emergency dept visit Completed 12/09/16 Encounters Encounter Location Arrival/Admit Date Discharge/Depart Date Attending Provider Departed Emergency Room [facility] 12/19/16 12:55pm 12/19/16 3: 05pm ROSHNI ALBA MD Departed Emergency Room [facility] 12/09/16 8:49pm 12/09/16 10: 30pm ROSHNI ALBA MD Departed Emergency Room [facility] 12/07/16 1:51pm 12/07/16 3: 14pm ROSHNI ALBA MD Departed Emergency Room [facility] 12/06/16 10:25pm 12/06/16 11: 14pm BENI DAVIDSON MD Departed Emergency Room [facility] 12/01/16 9:30pm 12/01/16 11: 59pm ROSHNI ALBA MD Departed Emergency Room [facility] 11/30/16 6:25pm 11/30/16 8: 25pm LUCIE GONZALES DO Departed Emergency Room [facility] 11/29/16 10:18am 11/29/16 11: 40am TONEY VICTORIA DO Departed Emergency Room [facility] 11/27/16 8:12pm 11/27/16 10: 34pm BENI DAVIDSON MD Departed Emergency Room [facility] 11/20/16 3:54pm 11/20/16 3: 58pm TONEY VICTORIA DO Departed Emergency Room [facility] 11/10/16 10:58pm 11/11/16 2: 37am RILEY HYLTON MD Departed Emergency Room [facility] 10/26/16 12:22am 10/26/16 1: 45am BENI DAVIDSON MD Departed Clinic [facility] 09/26/16 8:17pm 09/26/16 9:32pm ALTA VALENCIA MD Recent Diagnosis
[2017-01-17 00:03] LABS: BASOPHILS % (AUTO) 0.2 % (0-2); EOSINOPHILS # (AUTO) 0.1 T/MM3 (0-0.5); EOSINOPHILS % (AUTO) 1.2 % (0-4); HCT - HEMATOCRIT 33.4 % (36-46); HGB - HEMOGLOBIN 9.9 GM/DL (12-16); IMMATURE GRANULOCYTE # (AUTO) 0.01 T/MM3 (0.00-0.03); IMMATURE GRANULOCYTE % (AUTO) 0.1 % (0.0-0.5); LYMPHOCYTES # (AUTO) 2.8 T/MM3 (1-4.8); LYMPHOCYTES % (AUTO) 34.8 % (23-45); MEAN CORPUSCULAR HGB 23.2 UUG (26-34); MEAN CORPUSCULAR HGB CONC(MCHC 29.6 GM/DL (31-37); MEAN CORPUSCULAR VOLUME 78.2 UM3 (80-100); MEAN PLATELET VOLUME 11.5 UM3 (9.4-12.4); MONOCYTES # (AUTO) 0.4 T/MM3 (0-0.8); MONOCYTES % (AUTO) 4.9 % (0-9.0); NEUTROPHILS #(AUTO)-ABSOLUTE 4.8 T/MM3 (1.8-7.7); NEUTROPHILS % (AUTO) 58.8 % (33-66); RED BLOOD COUNT 4.27 M/MM3 (4.00-5.20); WBC - WHITE BLOOD COUNT 8.1 T/MM3 (4.5-11.0)
--- NOTE | 2017-01-17 00:06 | ERPDOC ---
Departure Disposition Decision Date: Jan 17, 2017 Disposition Decision Time: 02:25 Disposition: 01 DISCHARGED HOME, SELF-CARE Impression Impression Impression: Primary Impression: Chest wall pain Severity: Mild Condition: Improved Seen By: Physician only Referrals: MISSY CORREIA (PCP) 2 Days NILES RIGGINS APRN (Family) 2 Days Patient Instructions: Chest Wall Pain (ED) Problems/Meds/Labs Reviewed?: Yes Medications reviewed and manag: Yes Follow up care ordered?: Yes Mental Status: Alert, Oriented [facility] - General Medical General Chief Complaint: Chest Pain Stated Complaint: CHEST PAIN,PRESSURE Time Seen by Provider: 23:46 HPI - General Medical Initial Comments 26-year-old female presents to the emergency department with a chief complaint of chest pain. Patient noted onset of symptoms at approximately 2 PM today. Patient noted the pain in the right side of her chest. It was sharp. It was mild in nature. It was reproducible with movement of the thorax. Patient is currently asymptomatic. Patient denies any other complaints or associated symptoms. Patient does note that she does have a history of pulmonary embolism in the past. Denies any trauma or injury. She does note that she returned to work this past week and her work involves use of the upper body. Occurred At: home Onset: Constant (Currently resolved. ) Allergies: Coded Allergies: brompheniramine (Verified Allergy, Unknown, 12/09/16) cefaclor (Verified Allergy, Unknown, 12/09/16) ceftriaxone (Verified Allergy, Unknown, 12/09/16) morphine (Verified Allergy, Unknown, ITCHING, 12/09/16) nalbuphine (Verified Allergy, Unknown, 12/09/16) phenylephrine (Verified Allergy, Unknown, 12/09/16) Past History Patient Surgical History Csection Past Medical History Respiratory: pulmonary embolus Surgical History Reproductive/: , hysterectomy Family History Family History: Negative Social History Smoking Status: Never smoker Does patient use chewing tobac: No Second Hand Exposure: No Substance Use Type: does not use Alcohol Intake: none Review of Systems Constitutional Constitutional: DENIES: chills, fever Eyes General: DENIES: erythema, exudate Lids/Accessories: DENIES: erythema, swelling Vision: DENIES: acuity, blurring ENMT Ears: DENIES: drainage, erythema Hearing: DENIES: hearing loss Balance: DENIES: ataxia, falling to one side Sinuses: DENIES: congestion Nose: DENIES: nosebleeds, pain Mouth/Throat: DENIES: painful swallowing, sore throat Teeth: DENIES: pain Jaw: DENIES: pain Cardiovascular Cardiac: chest pain, DENIES: dyspnea on exertion Rhythm/Rate: DENIES: irregular beat, palpitations Vascular: DENIES: pedal edema, unilateral swelling Pulmonary Respiratory: DENIES: cough, dyspnea, pleuritic chest pain, sputum GI Upper Abdomen: DENIES: nausea, pain, vomiting Lower Abdomen: DENIES: diarrhea, pain General: DENIES: dysuria, frequency Musculoskeletal General: DENIES: joint pain, tenderness Integumentary Skin: DENIES: itching, rash Neurological General: DENIES: headache, numbness, weakness Psychiatric Psychiatric: DENIES: emotional instability, suicidal ideation/attempt Endocrine Endocrine: DENIES: polydipsia, polyphagia Hematologic/Lymphatic Hematologic/Lymphatic: DENIES: frequent nosebleeds, lymphadenopathy Allergic/Immunological Allergic/Immunoligical: DENIES: allergic reactions, hives Physical Exam General General Nourishment: well nourished, well developed, appears stated age, no acute distress, adult General Body Habitus: well groomed Vitals and Pain First Documented Vital Signs Date Time Temp Pulse Resp B/P Pulse Ox O2 Delivery O2 Flow Rate FiO2 01/16/17 23:37 97.6 72 23 110/63 99 Room Air Weight: Kilograms: Height (feet): 5 Height (inches): 7.00 Triage Pain Scale: RN VS reviewed by Provider: Yes Normal Exams: Head: Normocephalic w/o trauma Eyes: Pupils are PERRLA w/ EOMI, No scleral icterus, irritation, or foreign bodies noted ENMT: No facial trauma, nasal exudates, pharyngeal erythema, or exudates are noted Dental: No fractured, loose, or missing teeth noted Neck: Full range of motion, without adenopathy, JVD, bruits or thyromegaly Chest/Resp: Clear all ledesma, with good airflow, and symmetry bilaterally CV: Regular rate and rhythm, without murmur or gallop, Pulses 2+ all extremities, capillary refill, <2 seconds all ext., no pedal edema noted Abdomen: Bowel sounds positive, soft, non-tender, non-distended, no hepatosplenomegaly, masses or bruits noted Lymphatic: No lymphadenopathy, or lymphedema noted Musculoskeletal: No tenderness, or deformity noted, good range of motion, all extremities Integumentary: No rashes, hives, or bruising noted, hair and nails, without abnormality Neurologic: Patient is alert, and oriented, cranial nerves, motor/sensory/ cerebellar, exams w/o gross deficits, to observation Psychiatric: Patient exhibits, appropriate attention, emotion and affect Musculoskeletal (brief) Comments Chest wall tender to palpation which exactly reproduces pain. Differential Diagnoses Considering: Acute WI, Medication Effect, Metabolic, Other (Chest Wall Pain) Progress Results/Orders Orders Procedure Category Date Status Time Cbc W/Auto LAB 01/16/17 Complete Diff-Reflex Manual Cmp - Comprehensive LAB 01/16/17 Complete Metabolic Troponin I W LAB 01/16/17 Complete Hemolysis Index EKG EKG 01/16/17 Taken INR LAB 01/17/17 Complete Cta Pulmonary Emboli CT 01/17/17 Taken 00:42 Iohexol (Omnipaque) PHA 01/17/17 Complete 01:09 Normal Saline (Ns) PHA 01/17/17 Complete 01:10 Saline Flush (Iv PHA 01/17/17 Complete Flush) 01:10 Normal Saline (Ns) PHA 01/17/17 Complete 01:45 Lab Results Laboratory Tests Test 01/16/17 00:00 01/16/17 23:59 Prothromb Time International Ratio 1.82 White Blood Count 8.1T/MM3 Red Blood Count 4.27M/MM3 Hemoglobin 9.9GM/DL Hematocrit 33.4% Mean Corpuscular Volume 78.2UM3 Mean Corpuscular Hemoglobin 23.2UUG Mean Corpuscular Hemoglobin Concent 29.6GM/DL RDW Standard Deviation 59.4FL Platelet Count 271T/MM3 Mean Platelet Volume 11.5UM3 Immature Granulocyte % (Auto) 0.1% Neutrophils (%) (Auto) 58.8% Lymphocytes (%) (Auto) 34.8% Monocytes (%) (Auto) 4.9% Eosinophils (%) (Auto) 1.2% Basophils (%) (Auto) 0.2% Absolute Immature Granulocyte (auto 0.01T/MM3 Absolute Neutrophils (auto) 4.8T/MM3 Absolute Lymphocytes (auto) 2.8T/MM3 Absolute Monocytes (auto) 0.4T/MM3 Absolute Eosinophils (auto) 0.1T/MM3 Absolute Basophils (auto) 0.0T/MM3 Turbidity < 20 Sodium Level 144MEQ/L Potassium Level 3.6MEQ/L Chloride Level 105MEQ/L Carbon Dioxide Level 24MEQ/L Anion Gap 15MEQ/L Blood Urea Nitrogen 19.0MG/DL Creatinine 1.1MG/DL Glomerular Filtration Rate Calc 59 BUN/Creatinine Ratio 17RATIO Glucose Level 94MG/DL Calculated Osmolality 279MOSM/KG Calcium Level 9.5MG/DL Total Bilirubin 0.80MG/DL Icterus Index < 2 Aspartate Amino Transf (AST/SGOT) 20U/L Alanine Aminotransferase (ALT/SGPT) 35U/L Alkaline Phosphatase 65U/L Troponin I < 0.012ng/ml Total Protein 7.9G/DL Albumin 4.2G/DL Globulin 3.7G/DL Albumin/Globulin Ratio 1.1RATIO Chemistry Specimen Hemolysis < 15 Medications Current ED Medications Iohexol 1 bottle 1 bottle STK-MED ONCE .ROUTE ; Start 01/17/17 at 01:09; Stop at 01:10; Status DC Sodium Chloride (NS) 100 ml @ As Directed STK-MED ONCE .ROUTE ; Start 01/17/17 at 01:10; Stop 01/17/17 at 01:11; Status DC Sodium Chloride 10 ml 10 ml STK-MED ONCE .ROUTE ; Start 01/17/17 at 01:10; Stop 01/17/17 at 01:11; Status DC Sodium Chloride (NS) 500 ml @ 999 mls/hr Q31M ONCE IV Last administered on t 01:40; Start 01/17/17 at 01:45; Stop 01/17/17 at 02:15; Status DC Progress Progress Labs / imaging were discussed in detail with the patient and questions are answered. Patient declines offered analgesic pain medication. Patient is given gentle IV hydration. Patient remained pain-free in the emergency department. Patient has a negative troponin, negative CTA of the chest, and unremarkable EKG without signs of ischemia. Patient's pain is reproducible with palpation of the chest wall or movement of the thorax. Patient's pain is most likely in the chest wall. Patient symptoms began approximately 2 PM today and she has had sufficient time that if this was a cardiac process her troponin should be elevated and her troponin is unremarkable. She is discharged home in improved condition. She is to follow up as instructed. Patient is to return to the emergency Department if her condition worsens or changes in any manner. Patient is in agreement with the current plan of management. Patient is to continue to use over the counter acetaminophen as needed for pain control. We will avoid steroids or nonsteroidal anti-inflammatory medications as the patient is anticoagulated. We do not want to cause GI bleeding. EKG EKG : Rate: 60-100 Rhythm: sinus [place]: normal QRS: normal Intervals: normal ST/T: normal Interpreted by: signing physician CT CT : CT: Chest IV contrast Interpretation: Normal, Faxed Report TONEY VICTORIA DO Jan 17, 2017 00:06
[2017-01-17 00:13] LABS: ALBUMIN 4.2 G/DL (3.5-5.0); ALBUMIN/GLOBULIN RATIO 1.1 RATIO (1.1-2.2); ALKALINE PHOSPHATASE 65 U/L (38-126); ALT (SGPT) 35 U/L (9-52); ANION GAP 15 MEQ/L (5-15); AST (SGOT) 20 U/L (14-36); BUN/CREATININE RATIO 17 RATIO (6-26); CALCIUM 9.5 MG/DL (8.4-10.2); CHLORIDE 105 MEQ/L (98-107); CO2 - CARBON DIOXIDE 24 MEQ/L (22-30); CREATININE 1.1 MG/DL (0.7-1.2); GLOMERULAR FILTRATION RATE 59; GLUCOSE 94 MG/DL (65-110); POTASSIUM 3.6 MEQ/L (3.6-5); SODIUM 144 MEQ/L (134-144); TOTAL PROTEIN 7.9 G/DL (6.3-8.2)
[2017-01-17] MEDS ORDERED: RANI-470 PO (00:13)
[2017-01-17 00:14] LABS: INR 1.82 (0.76-1.04); PROTHROMBIN TIME 19.8 SEC (9.31-12.49)
[2017-01-17] MEDS ORDERED: IOHEXOL 350 MG/ML 75ml INJECTION ONE (01:09)
[2017-01-17] MEDS ORDERED: NORMAL SALINE 100 ML ONE (01:10)
[2017-01-17] MEDS ORDERED: SALINE FLUSH 10ml SYRINGE ONE (01:10)
--- NOTE | 2017-01-17 01:13 | NUR ---
CT PT TO IMAGING AT THIS TIME
--- NOTE | 2017-01-17 01:39 | NUR ---
CT PT RETURN FROM IMAGING AT THIS TIME.
[2017-01-17] MEDS ORDERED: NORMAL SALINE 500 ML IV ONE (01:45)
--- NOTE | 2017-01-17 02:21 | NUR ---
STATUS PT RESTING WITH EYES CLOSED. DOES ANSWER APPROPRIATELY WHEN SPOKEN TO. DENIES NEEDS AT THIS TIME. SPOUSE AND CHILD AT BEDSIDE.
[2017-01-17 02:45] VITALS: BP 114/62; PULSE 66; RESP 23; TEMP 97.6; O2SAT 96
--- NOTE | 2017-01-17 02:45 | NUR ---
DEPART PT GIVEN DI FOR CHEST WALL PAIN AND F/U. PT VERBALIZES UNDERSTANDING OF DI. QUESTIONS ASKED/ANSWERED - DENIES FURTHER QUESTIONS/NEEDS AT THIS TIME. PT REPORTS NO CP AT THIS TIME. IV SITE REMOVED. PERSONAL BELONGINGS GATHERED. PT AMBULATED/ESCORTED TO ED EXIT - GAIT STABLE, NO SIGN OF DISTRESS.
--- NOTE | 2017-01-18 13:09 | DI ---
Indication: ITS.REASON: Chest pain PROCEDURE: CTA PULMONARY EMBOLI: Encounter: Initial Comparison: November 11, 2016 Technique: Axial CT pulmonary angiographic phase images were performed through the chest after the administration of intravenous contrast. Coronal and Sagittal MIP reconstructed images were created and reviewed. Automated Exposure Control and Iterative Reconstruction dose reducing techniques were utilized. Contrast: Omnipaque 350 74 mL Findings: Pulmonary arteries: Exam is nondiagnostic for pulmonary embolus. Other findings: Lungs are clear. No pleural effusion or pneumothorax. The central airways are patent. No pulmonary masses. No axillary or mediastinal adenopathy. Heart size is normal. The upper abdomen shows no acute findings. Impression: Exam is nondiagnostic for pulmonary embolus. If there is continued clinical concern for PE a nuclear medicine VQ scan could be performed for further evaluation. There is a preliminary report by [facility]. The preliminary report felt that scan could be interpreted for pulmonary embolus however I feel the contrast bolus is too poor for adequate evaluation. .
== END 2017-01-17 02:45 | disposition home or self-care (01) ==
LOC: ED 23:34
DX: R07.89 Other chest pain (principal); Z86.711 Personal history of pulmonary embolism; Z79.01 Long term (current) use of anticoagulants
CPT/HCPCS: 80053; 84484; 85025; 85610; 93005

== ENCOUNTER 2017-01-24 23:04 | Emergency (ER) | payer BC ==
[~2017-01-24] VITALS: Ht 170.2 cm; Wt 164.2 kg
[~2017-01-24 23:04] MED LIST changes: +RANI-470 PO
[2017-01-24 23:08] VITALS: Ht 170.2 cm; Wt 164.2 kg
--- OUTSIDE RECORDS SUMMARY | 2017-01-24 23:10 | XMS REPORT | Continuity of Care Document ---
Author Author [facility] Organization [facility] Address Unknown Phone Unavailable Care Team Providers Care Bow Tacker Name Role Phone CORREIAMISSY RUVALCABA Primary Care Physician [phone] Insurance Providers Guarantor Anusha Almazan Address [address] [place] [address] Email [email or web address] Payer [facility] Policy Number [id number] Subscriber's Name Anusha Almazan Tre Relationship 18 Self Effective Date 16 Expiration Date 17 Chief Complaint and Reason for Visit Chief Complaint Chest Pain Reason for Visit Chest wall pain Problems Active Problems Medical Problem Onset Date Status Eclampsia Unknown Morbid (severe) obesity due to excess calories Unknown Supratherapeutic INR Unknown VTE (venous thromboembolism) Unknown Past Problems Medical Problem Onset Date Anticoagulation goal of INR 2 to 3 Unknown Atypical chest pain Unknown Bleeding gums Unknown Chest wall pain Unknown Dyspnea Unknown Elevated INR Unknown [...] 4 Hours as needed for Pain 06/18/16 Ranitidine Hcl 75 Mg Tablet 75 Mg Oral Bedtime 01/17/17 Warfarin Sodium 2.5 Mg Tablet 2.5 Mg [...] Cap Oral Every 6 Hours Discontinued Hydrocodone/Acetaminophen ([place] 5-325 Tablet) 5-325 Tablet, 1 Tab Oral Every 4 Hours Prn 10/26/16 Discontinued Ibuprofen 200 Mg Tablet, 600 Mg Oral Every 6 Hours as needed for Pain Discontinued Nitrofurantoin Monohyd/M-Cryst (Macrobid 100 Mg Capsule) 100 Mg Capsule, 1 Cap Oral Twice Daily With Meals 10/26/16 Discontinued Social History Social History Problem Response Recorded Date/Time Onset Date Status Hx Substance Use No 01/17/2017 12:10am Not Applicable Not Applicable Hx Alcohol Use No 01/17/2017 12:10am Not Applicable Not Applicable Query Response Start Date Stop Date Smoking Status Never smoker Hospital Discharge Instructions No hospital discharge instructions. Plan of Care Discharge Date 01/17/17 2:45am Disposition 01 DISCHARGED HOME, SELF-CARE Condition at Discharge Improved Instructions/Education Provided Chest Wall Pain (ED) Prescriptions See Medication Section Referrals MISYS CORREIA Order Date: 2 Days Address: [address] [place] [id number] Note: NILES RIGGINS APRN Order Date: 2 Days Address: [address] [place] [id number] Note: Care Plan and Goals Physician Care Plan Problem: Chest Wall Pain Goal: Follow up with primary care [...] Vaccination Yes 12/01/16 11:55pm DTaP Vaccine History 201501/17/17 12:10am Influenza Vaccine Hx NOT YET THIS SEASON 01/17/17 12:10am Tdap Vaccine Hx UTD PER PT 12/06/16 11:00pm Vital Signs Acute Vital Signs Vital Response Date/Time Temperature (Fahrenheit) 97.6 deg F (96.8 - 99.1) 01/17/2017 2:45am Temperature (Calculated Celsius) 36.27654 degrees C (36.0 - 37.3) 01/17/2017 2:45am Pulse Rate (adult) 66 bpm (60 - 100) 01/17/2017 2:45am Respiratory Rate 23 breaths/min (10 - 20) 01/17/2017 2:45am O2 Sat by Pulse Oximetry 96 % (90 - 100) 01/17/2017 2:45am Blood Pressure 114/62 mm Hg 01/17/2017 2:45am Height (Feet) 5 feet 01/16/2017 11:37pm Height (Inches) 7.00 inches 01/16/2017 11:37pm Weight (Kilograms) 164.100 kg 01/16/2017 11:37pm Body Mass Index (BMI) 56.0 01/16/2017 11:37pm Results Laboratory Results Test Name Result Units Flags Reference Collection Date/Time Result Date/ Time Comments Urine Collection Type CLEANCATCH-MIDSTREAM 10/26/2016 12:52am 10/26 1:08am Urine Color YELLOW YELLOW 10/26/2016 12:52am 10/26/2016 1:08am Urine Turbidity CLEAR CLEAR 10/26/2016 12:52am 10/26/2016 1:08am Urine Specific [place] 1.020 1.015-1.025 10/26/2016 12:52am 2016 1:08am Urine [...] CULT NOT INDICATED 10/26/2016 12:52am 10/26 1:17am D-Dimer 1362 NG/ML H 0-230 11/10/2016 11:54pm 11/11/2016 12:15am <230 NG/ML D-DU=PRESUMPTIVE NEGATIVE FOR PE OR DVT >230 NG/ML D-DU=ADDITIONAL EVAL FOR PE OR DVT RECOMMENDED White Blood Count 8.1 T/MM3 4.5-11.0 01/16/2017 11:59pm 01/17/2017 12: 03am Red Blood Count 4.27 M/MM3 4.00-5.20 01/16/2017 11:59pm 01/17/2017 12: 03am Hemoglobin 9.9 GM/DL L 12-16 01/16/2017 11:59pm 01/17/2017 12:03am Hematocrit 33.4 % L 36-46 01/16/2017 11:59pm 01/17/2017 12:03am Mean Corpuscular Volume 78.2 UM3 L 80-100 01/16/2017 11:59pm 01/17/2017 12:03am Mean Corpuscular Hemoglobin 23.2 UUG L 26-34 01/16/2017 11:59pm 2016 12:03am Mean Corpuscular Hemoglobin Concent 29.6 GM/DL L 31-37 01/16/2017 11: 59pm 01/17/2017 12:03am RDW Standard Deviation 59.4 FL H 36.9-50.2 01/16/2017 11:59pm 2016 12:03am Platelet Count 271 T/MM3 130-400 01/16/2017 11:59pm 01/17/2017 12:03am Mean Platelet Volume 11.5 UM3 9.4-12.4 01/16/2017 11:59pm 01/17/2017 12 :03am Neutrophils (%) (Auto) 58.8 % 33-66 01/16/2017 11:59pm 01/17/2017 12: 03am Lymphocytes (%) (Auto) 34.8 % 23-45 01/16/2017 11:59pm 01/17/2017 12: 03am Monocytes (%) (Auto) 4.9 % 0-9.0 01/16/2017 11:59pm 01/17/2017 12:03am Eosinophils (%) (Auto) 1.2 % 0-4 01/16/2017 11:59pm 01/17/2017 12:03am Basophils (%) (Auto) 0.2 % 0-2 01/16/2017 11:59pm 01/17/2017 12:03am Immature Granulocyte % (Auto) 0.1 % 0.0-0.5 01/16/2017 11:59pm 2016 12:03am Absolute Neutrophils (auto) 4.8 T/MM3 1.8-7.7 01/16/2017 11:59pm 2016 12:03am Absolute Lymphocytes (auto) 2.8 T/MM3 1-4.8 01/16/2017 11:59pm 2016 12:03am Absolute Monocytes (auto) 0.4 T/MM3 0-0.8 01/16/2017 11:59pm 2016 12:03am Absolute Eosinophils (auto) 0.1 T/MM3 0-0.5 01/16/2017 11:59pm 2016 12:03am Absolute Basophils (auto) 0.0 T/MM3 0-0.2 01/16/2017 11:59pm 2016 12:03am Absolute Immature Granulocyte (auto 0.01 T/MM3 0.00-0.03 01/16/2017 11: 5901/17/2017 12:03am Prothromb Time International Ratio 1.82 H 0.76-1.04 01/16/2017 UNK 12:14am THERAPUTIC RANGE=2.00-3.00 FOR ANTI-THROMBOSIS THERAPUTIC RANGE=2.50-3.50 FOR IMPLANTED VALVE Icterus Index < 2 0-7 01/16/2017 11:59pm 01/17/2017 12:13am Chemistry Specimen Hemolysis < 15 0-25 01/16/2017 11:59pm 01/17/2017 12:13am 0-25: Specimen Exhibited No Hemolysis. Turbidity < 20 0-20 01/16/2017 11:59pm 01/17/2017 12:13am Sodium Level 144 MEQ/L 134-144 01/16/2017 11:59pm 01/17/2017 12:13am Potassium Level 3.6 MEQ/L 3.6-5 01/16/2017 11:59pm 01/17/2017 12:13am Chloride Level 105 MEQ/L 98-107 01/16/2017 11:59pm 01/17/2017 12:13am Carbon Dioxide Level 24 MEQ/L 22-30 01/16/2017 11:59pm 01/17/2017 12: 13am Anion Gap 15 MEQ/L 5-15 01/16/2017 11:59pm 01/17/2017 12:13am Blood Urea Nitrogen 19.0 MG/DL H 7-17 01/16/2017 11:59pm 01/17/2017 12: 13am Creatinine 1.1 MG/DL 0.7-1.2 01/16/2017 11:59pm 01/17/2017 12:13am BUN/Creatinine Ratio 17 RATIO 6-26 01/16/2017 11:59pm 01/17/2017 12: 13am Glomerular Filtration Rate Calc 59 01/16/2017 11:59pm 01/17/2017 12 :13am Glucose Level 94 MG/DL 65-110 01/16/2017 11:59pm 01/17/2017 12:13am Calculated Osmolality 279 MOSM/KG 261-280 01/16/2017 11:59pm 2016 12:13am Calcium Level 9.5 MG/DL 8.4-10.2 01/16/2017 11:59pm 01/17/2017 12:13am Total Bilirubin 0.80 MG/DL 0.20-1.30 01/16/2017 11:59pm 01/17/2017 12: 13am Alkaline Phosphatase 65 U/L 38-126 01/16/2017 11:59pm 01/17/2017 12: 13am Total Protein 7.9 G/DL 6.3-8.2 01/16/2017 11:59pm 01/17/2017 12:13am Albumin 4.2 G/DL 3.5-5.0 01/16/2017 11:59pm 01/17/2017 12:13am Globulin 3.7 G/DL H 2.4-3.6 01/16/2017 11:59pm 01/17/2017 12:13am Albumin/Globulin Ratio 1.1 RATIO 1.1-2.2 01/16/2017 11:59pm 01/17/2017 12:13am Aspartate Amino Transf (AST/SGOT) 20 U/L 14-36 01/16/2017 11:59pm 01/17 12:13am Alanine Aminotransferase (ALT/SGPT) 35 U/L 9-52 01/16/2017 11:59pm 12:13am Troponin I < 0.012 ng/ml 0-0.12 01/16/2017 11:59pm 01/17/2017 12:24am Troponin values with a difference of 55% increase from orginal troponin value represent a true biological DELTA value. (%increase Calc=Orginal Troponin value, divided by subsequent Troponin value, multiplied by 100) Procedures Procedure Status Date Provider(s) Routine venipuncture Completed 10/26/16 Comprehen metabolic panel Completed 10/26/16 Urinalysis auto w/scope Completed 10/26/16 Complete cbc w/auto diff wbc Completed 10/26/16 Ther/proph/diag inj iv push Completed 10/26/16 Emergency dept visit Completed 10/26/16 012063"INJECTION, ORPHENADRINE CITRATE, UP TO 60 MG" Completed 10/26/16 Routine venipuncture Completed 11/10/16 Chest x-ray 2vw frontal&latl Completed 11/10/16 Ct angiography chest Completed 11/10/16 Metabolic panel total ca Completed 11/10/16 Complete cbc w/auto diff wbc Completed 11/10/16 Fibrin degradation quant Completed 11/10/16 Electrocardiogram tracing Completed 11/10/16 Ther/proph/diag inj sc/im Completed 11/10/16 Ther/proph/diag inj sc/im Completed 11/10/16 Emergency dept visit Completed 11/10/16 907167"INJECTION, ENOXAPARIN SODIUM, 10 MG" Completed 11/10/16 [id number]"INFUSION, NORMAL SALINE SOLUTION , 250 CC" Completed [...] Completed 12/09/16 Emergency dept visit Completed 12/09/16 Emergency dept visit Completed 12/19/16 Encounters Encounter Location Arrival/Admit Date Discharge/Depart Date Attending Provider Departed Emergency Room [facility] 01/16/17 11:34pm 01/17/17 2: 45am TONEY VICTORIA DO Departed Emergency Room [facility] 12/19/16 12:55pm 12/19/16 3: 05pm ROSHNI ALBA MD Departed Emergency Room [facility] 12/09/16 8:49pm 12/09/16 10: 30pm ROSHNI ALBA MD Departed Emergency Room [facility] 12/07/16 1:51pm 12/07/16 3: 14pm ROSHNI ALBA MD Departed Emergency Room [facility] 12/06/16 10:25pm 12/06/16 11: 14pm BENI DAVIDSON MD Departed Emergency Room [facility] 12/01/16 9:30pm 12/01/16 11: 59pm ROSHNI ALBA MD Departed Emergency Room [facility] 11/30/16 6:25pm 11/30/16 8: 25pm JANUARYLUCIE DO Departed Emergency Room [facility] 11/29/16 10:18am 11/29/16 11: 40am TONEY VICTORIA DO Departed Emergency Room [facility] 11/27/16 8:12pm 11/27/16 10: 34pm BENI DAVIDSON MD Departed Emergency Room [facility] 11/20/16 3:54pm 11/20/16 3: 58pm TONEY VICTORIA DO Departed Emergency Room [facility] 11/10/16 10:58pm 11/11/16 2: 37am RILEY HYLTON MD Departed Emergency Room [facility] 10/26/16 12:22am 10/26/16 1: 45am BENI DAVIDSON MD Recent Diagnosis
[2017-01-25 00:04] LABS: BASOPHILS % (AUTO) 0.2 % (0-2); EOSINOPHILS # (AUTO) 0.1 T/MM3 (0-0.5); EOSINOPHILS % (AUTO) 1.4 % (0-4); HCT - HEMATOCRIT 31.7 % (36-46); HGB - HEMOGLOBIN 9.7 GM/DL (12-16); IMMATURE GRANULOCYTE # (AUTO) 0.01 T/MM3 (0.00-0.03); IMMATURE GRANULOCYTE % (AUTO) 0.1 % (0.0-0.5); LYMPHOCYTES # (AUTO) 2.5 T/MM3 (1-4.8); LYMPHOCYTES % (AUTO) 30.5 % (23-45); MEAN CORPUSCULAR HGB 23.5 UUG (26-34); MEAN CORPUSCULAR HGB CONC(MCHC 30.6 GM/DL (31-37); MEAN CORPUSCULAR VOLUME 76.9 UM3 (80-100); MEAN PLATELET VOLUME 11.3 UM3 (9.4-12.4); MONOCYTES # (AUTO) 0.4 T/MM3 (0-0.8); MONOCYTES % (AUTO) 4.4 % (0-9.0); NEUTROPHILS #(AUTO)-ABSOLUTE 5.1 T/MM3 (1.8-7.7); NEUTROPHILS % (AUTO) 63.4 % (33-66); RED BLOOD COUNT 4.12 M/MM3 (4.00-5.20); WBC - WHITE BLOOD COUNT 8.1 T/MM3 (4.5-11.0)
[2017-01-25 00:06] LABS: INR 1.63 (0.76-1.04); PROTHROMBIN TIME 17.8 SEC (9.31-12.49)
[2017-01-25 00:11] LABS: ALBUMIN 4.1 G/DL (3.5-5.0); ALBUMIN/GLOBULIN RATIO 1.1 RATIO (1.1-2.2); ALKALINE PHOSPHATASE 56 U/L (38-126); ALT (SGPT) 35 U/L (9-52); ANION GAP 14 MEQ/L (5-15); AST (SGOT) 12 U/L (14-36); BUN/CREATININE RATIO 17 RATIO (6-26); CALCIUM 8.9 MG/DL (8.4-10.2); CHLORIDE 103 MEQ/L (98-107); CO2 - CARBON DIOXIDE 27 MEQ/L (22-30); CREATININE 0.9 MG/DL (0.7-1.2); GLOMERULAR FILTRATION RATE 75; GLUCOSE 96 MG/DL (65-110); LIPASE 67 U/L (23-300); POTASSIUM 3.9 MEQ/L (3.6-5); SODIUM 144 MEQ/L (134-144); TOTAL PROTEIN 7.7 G/DL (6.3-8.2)
--- NOTE | 2017-01-25 00:30 | NUR ---
IMAGING PT TO IMAGING AT THIS TIME
--- NOTE | 2017-01-25 00:45 | NUR ---
IMAGING PT RETURN FROM IMAGING AT THIS TIME
[2017-01-25 01:18] LABS: BLOOD, URINE NEGATIVE (NEGATIVE); COLOR,URINE YELLOW (YELLOW); LEUKOCYTE ESTERASE ,URINE NEGATIVE (NEGATIVE); NITRITE,URINE NEGATIVE (NEGATIVE); UROBILINOGEN,URINE 0.2 EU/DL (NORMAL)
--- NOTE | 2017-01-25 01:32 | ERPDOC ---
Departure Disposition Decision Date: January 25, 2017 Disposition Decision Time: : Disposition: 01 DISCHARGED HOME, SELF-CARE Impression Impression Impression: Primary Impression: Abdominal pain Abdominal location: unspecified location Qualified Codes: R10.9 - Unspecified abdominal pain Severity: Mild Condition: Improved Seen By: Physician only Referrals: MISSY CORREIA (PCP) 2 Days NILES RIGGINS APRN (Family) 2 Days Patient Instructions: Abdominal Pain (ED) Problems/Meds/Labs Reviewed?: Yes Medications reviewed and manag: Yes Follow up care ordered?: Yes Mental Status: Alert, Oriented HPI - Abdominal Pain General Chief Complaint: Abdominal Pain Stated Complaint: ABD PAIN Time Seen by Provider: 23:19 Source: patient History/Exam Limitations: no limitations HPI - Abdominal Pain Initial Comments 26-year-old female presents to the emergency department with a chief complaint of abdominal discomfort. Patient notes generalized lower abdominal discomfort. Patient states that she has a chronic wound and is concerned that the chronic wound may be becoming infected. Patient was released from [facility] yesterday and is currently on Augmentin for treatment of chronic wound infection. Patient denies any other complaints or associated symptoms. Pain is dull. Pain is mild. There is no radiation. She does not note any exacerbating or remitting factors. There are no other complaints or associated symptoms. Occurred At: home Onset: Gradual Allergies: Coded Allergies: brompheniramine (Verified Allergy, Unknown, 12/09/16) cefaclor (Verified Allergy, Unknown, 12/09/16) ceftriaxone (Verified Allergy, Unknown, 12/09/16) morphine (Verified Allergy, Unknown, ITCHING, 12/09/16) nalbuphine (Verified Allergy, Unknown, 12/09/16) phenylephrine (Verified Allergy, Unknown, 12/09/16) Past History Patient Surgical History Csection Past Medical History Respiratory: pulmonary embolus Surgical History Reproductive/: , hysterectomy Family History Family History: Negative Social History Smoking Status: Never smoker Does patient use chewing tobac: No Second Hand Exposure: No Substance Use Type: does not use Alcohol Intake: none Review of Systems Constitutional Constitutional: DENIES: chills, fever Eyes General: DENIES: erythema, exudate Lids/Accessories: DENIES: erythema, swelling Vision: DENIES: acuity, blurring ENMT Ears: DENIES: drainage, erythema Hearing: DENIES: hearing loss Balance: DENIES: falling to one side Sinuses: DENIES: congestion, pain Nose: DENIES: nosebleeds, pain Mouth/Throat: DENIES: painful swallowing, sore throat Teeth: DENIES: pain Jaw: DENIES: pain Cardiovascular Cardiac: DENIES: chest pain, dyspnea on exertion Rhythm/Rate: DENIES: irregular beat, palpitations Vascular: DENIES: pedal edema, unilateral swelling Pulmonary Respiratory: DENIES: cough, dyspnea, pleuritic chest pain, sputum GI Upper Abdomen: DENIES: nausea, pain, vomiting Lower Abdomen: pain, DENIES: diarrhea General: DENIES: dysuria, frequency, urgency Musculoskeletal General: DENIES: joint pain, tenderness Integumentary Skin: DENIES: itching, rash Neurological General: DENIES: headache, numbness, weakness Psychiatric Psychiatric: DENIES: emotional instability, suicidal ideation/attempt Endocrine Endocrine: DENIES: polydipsia, polyphagia Hematologic/Lymphatic Hematologic/Lymphatic: DENIES: frequent nosebleeds, lymphadenopathy Allergic/Immunological Allergic/Immunoligical: DENIES: allergic reactions, hives Physical Exam General General Nourishment: well nourished, well developed, appears stated age, no acute distress, adult General Body Habitus: well groomed Vitals and Pain First Documented Vital Signs Date Time Temp Pulse Resp B/P Pulse Ox O2 Delivery O2 Flow Rate FiO2 01/24/17 23:08 98.3 76 18 119/74 99 Room Air Weight: Kilograms: 164.200 Height (feet): 5 Height (inches): 7.00 Triage Pain Scale: RN VS reviewed by Provider: Yes Normal Exams: Head: Normocephalic w/o trauma Eyes: Pupils are PERRLA w/ EOMI, No scleral icterus, irritation, or foreign bodies noted ENMT: No facial trauma, nasal exudates, pharyngeal erythema, or exudates are noted Dental: No fractured, loose, or missing teeth noted Neck: Full range of motion, without adenopathy, JVD, bruits or thyromegaly Chest/Resp: Clear all ledesma, with good airflow, and symmetry bilaterally CV: Regular rate and rhythm, without murmur or gallop, Pulses 2+ all extremities, capillary refill, <2 seconds all ext., no pedal edema noted Abdomen: Bowel sounds positive, soft, non-tender, non-distended, no hepatosplenomegaly, masses or bruits noted Lymphatic: No lymphadenopathy, or lymphedema noted Musculoskeletal: No tenderness, or deformity noted, good range of motion, all extremities Integumentary: No rashes, hives, or bruising noted, hair and nails, without abnormality Neurologic: Patient is alert, and oriented, cranial nerves, motor/sensory/ cerebellar, exams w/o gross deficits, to observation Psychiatric: Patient exhibits, appropriate attention, emotion and affect Abdomen (brief) Comments Wound Vac is in place. No drainage. Clean and dry. NO CVAT. Differential Diagnoses Considering: Bowel Obstruction, Diverticulitis, Hernia, Ileus, UTI Progress Results/Orders Orders Procedure Category Date Status Time Cbc W/Auto LAB 01/24/17 Complete Diff-Reflex Manual Cmp - Comprehensive LAB 01/24/17 Complete Metabolic Lipase LAB 01/24/17 Complete Ua, Dip Wreflex LAB 01/24/17 Complete Microsc & [employer] Department Head 23:20 INR LAB 01/24/17 Complete LAB 01/24/17 Complete Qualitative, Serum 23:56 Ct Abd/Pelvis W/O CT 01/25/17 Taken Contrast 00:21 Lab Results Laboratory Tests Test 01/24/17 23:56 01/24/17 23:57 01/25/17 01:11 Prothromb Time International Ratio 1.63 Turbidity < 20 Sodium Level 144MEQ/L Potassium Level 3.9MEQ/L Chloride Level 103MEQ/L Carbon Dioxide Level 27MEQ/L Anion Gap 14MEQ/L Blood Urea Nitrogen 15.0MG/DL Creatinine 0.9MG/DL Glomerular Filtration Rate Calc 75 BUN/Creatinine Ratio 17RATIO Glucose Level 96MG/DL Calculated Osmolality 278MOSM/KG Calcium Level 8.9MG/DL Total Bilirubin 0.60MG/DL Icterus Index < 2 Aspartate Amino Transf (AST/SGOT) 12U/L Alanine Aminotransferase (ALT/SGPT) 35U/L Alkaline Phosphatase 56U/L Total Protein 7.7G/DL Albumin 4.1G/DL Globulin 3.6G/DL Albumin/Globulin Ratio 1.1RATIO Lipase 67U/L Human Chorionic Gonadotropin, Qual Negative Chemistry Specimen Hemolysis < 15 White Blood Count 8.1T/MM3 Red Blood Count 4.12M/MM3 Hemoglobin 9.7GM/DL Hematocrit 31.7% Mean Corpuscular Volume 76.9UM3 Mean Corpuscular Hemoglobin 23.5UUG Mean Corpuscular Hemoglobin Concent 30.6GM/DL RDW Standard Deviation 55.4FL Platelet Count 264T/MM3 Mean Platelet Volume 11.3UM3 Immature Granulocyte % (Auto) 0.1% Neutrophils (%) (Auto) 63.4% Lymphocytes (%) (Auto) 30.5% Monocytes (%) (Auto) 4.4% Eosinophils (%) (Auto) 1.4% Basophils (%) (Auto) 0.2% Absolute Immature Granulocyte (auto 0.01T/MM3 Absolute Neutrophils (auto) 5.1T/MM3 Absolute Lymphocytes (auto) 2.5T/MM3 Absolute Monocytes (auto) 0.4T/MM3 Absolute Eosinophils (auto) 0.1T/MM3 Absolute Basophils (auto) 0.0T/MM3 Urine Collection Type Cleancatch-midstream Urine Color Yellow Urine Turbidity Clear Urine pH 6.0 Urine Specific [place] 1.020 Urine Protein Negative Urine Glucose (UA) Negative Urine Ketones Negative Urine Blood Negative Urine Nitrite Negative Urine Bilirubin Negative Urine Urobilinogen 0.2EU/DL Urine Leukocyte Esterase Negative Urinalysis Comment Microscopic not ind. Progress Progress Labs / imaging were discussed in detail with the patient and family and questions are answered. Patient declines offered analgesic pain medication. Patient's original surgery was in September. Patient has not had any procedures other than wound VAC changed since then. Patient CT scan is reviewed with general surgery on-call Dr. Conroy. Dr. Conroy recommends no acute intervention and follow-up with [facility] at this time. Patient is in agreement with the current plan of management. Patient is discharged home in improved condition. She is to follow up as instructed. Patient is to return to the emergency Department if her condition worsens or changes in any manner. Patient is in agreement with the current plan of management. Patient is afebrile in the emergency department. Vital signs are stable. Patient has normal laboratory evaluation. There is no current indication for admission to the hospital at this time. CT CT : CT: Abd/Pelvis no contrast Interpretation: Abnormal (post operative changes in the anterior abdominal wall with asymmetry of rectus abdominal musculature suggesting potential hematoma. No drainable fluid collection on this examination.), Faxed Report TONEY VICTORIA DO January 25, 2017 01:32
[2017-01-25 01:43] VITALS: BP 112/64; PULSE 74; RESP 18; TEMP 98.3; O2SAT 97
--- NOTE | 2017-01-25 01:43 | NUR ---
DEPART PT GIVEN DI FOR ABDOMINAL PAIN AND F/U. VERBALIZES UNDERSTANDING OF DI. QUESTIONS ASKED/ANSWERED - DENIES FURTHER QUESTIONS/NEEDS AT THIS TIME. PT REPORTS SOME IMPROVEMENT IN PAIN - 2/10 AT THIS TIME. CONTINUES TO DENY NAUSEA. PERSONAL BELONGINGS GATHERED. PT AMBULATED/ESCORTED TO ED EXIT - GAIT STABLE, NO SIGN OF DISTRESS.
--- NOTE | 2017-01-25 08:13 | DI ---
Indication: ITS.REASON: abd pain, recent hysterectomy PROCEDURE: CT ABD/PELVIS W/O CONTRAST: Encounter: Initial Comparison: None Technique: Axial CT images were performed through the abdomen and pelvis without intravenous contrast. Coronal and sagittal two-dimensional reformats. Automated Exposure Control and Iterative Reconstruction dose reducing techniques were utilized. Findings: The lung bases are clear. The unenhanced contours of the liver, gallbladder, spleen, pancreas and adrenal glands are within normal limits. The kidneys appear normal. Inflammation in the left anterior abdomen and umbilical region. Bladder is normal. Uterus is surgically absent. No evidence of a small bowel obstruction. The appendix is not definitively located. Some slight asymmetric thickening of the left rectus abdominis muscle inferiorly near the area of subcutaneous and periumbilical inflammatory change. Probable injection granulomas present. Bone windows show no acute findings. Impression: Findings of a umbilical region abdominal wound related to the patient's recent surgery. Significant left rectus induration with possible intramuscular hematoma or phlegmon but no obvious abscess. There is a preliminary report by [facility]. .
== END 2017-01-25 01:43 | disposition home or self-care (01) ==
LOC: ED 23:04
DX: R10.30 Lower abdominal pain, unspecified (principal)
CPT/HCPCS: 36415; 80053; 81003; 83690; 84703; 85025; 85610

== ENCOUNTER 2017-02-04 21:37 | Emergency (ER) | payer BC ==
--- OUTSIDE RECORDS SUMMARY | 2017-02-04 21:41 | XMS REPORT | Continuity of Care Document ---
Author Author [facility] Organization [facility] Address Unknown Phone Unavailable Care Team Providers Care Rounder And Backer Name Role Phone CORREIA, MISSY Primary Care Physician [phone] Insurance Providers Guarantor Anusha Almazan Address [address] [place] [address] Email [email or web address] Policy Number [id number] Subscriber's Name Almazan,Anusha [place] Relationship 18 Self Group Number [id number] Chief Complaint and Reason for Visit Chief Complaint Abdominal Pain Reason for Visit Abdominal pain Problems Active Problems Medical Problem Onset Date Status Eclampsia Unknown Morbid (severe) obesity due to excess calories Unknown Supratherapeutic INR Unknown VTE (venous thromboembolism) Unknown Past Problems Medical Problem Onset Date Abdominal pain Unknown Anticoagulation goal of INR 2 to 3 [...] Cap Oral Every 6 Hours Discontinued Hydrocodone/Acetaminophen (Celoron 5-325 Tablet) 5-325 Tablet, 1 Tab Oral Every 4 Hours Prn 10/26/16 Discontinued Ibuprofen 200 Mg Tablet, 600 Mg Oral Every 6 Hours as needed for Pain Discontinued Nitrofurantoin Monohyd/M-Cryst (Macrobid 100 Mg Capsule) 100 Mg Capsule, 1 Cap Oral Twice Daily With Meals 10/26/16 Discontinued Social History Social History Problem Response Recorded Date/Time Onset Date Status Hx Substance Use No 01/24/2017 11:08pm Not Applicable Not Applicable Hx Alcohol Use No 01/24/2017 11:08pm Not Applicable Not Applicable Query Response Start Date Stop Date Smoking Status Never smoker Hospital Discharge Instructions No hospital discharge instructions. Plan of Care Discharge Date 01/25/17 1:43am Disposition 01 DISCHARGED HOME, SELF-CARE Condition at Discharge Improved Instructions/Education Provided Abdominal Pain (ED) Prescriptions See Medication Section Referrals MISSY CORREIA Order Date: 2 Days Address: [address] [place] [id number] Note: NILES RIGGINS APRN Order Date: 2 Days Address: [address] [place] [id number] Note: Care Plan and Goals Physician Care Plan Problem: Abdominal Pain Goal: Follow up with primary care [...] Vaccination Yes 12/01/16 11:55pm DTaP Vaccine History 201501/24/17 11:08pm Influenza Vaccine Hx NOT YET THIS SEASON 01/24/17 11:08pm Tdap Vaccine Hx UTD PER PT 12/06/16 11:00pm Vital Signs Acute Vital Signs Vital Response Date/Time Temperature (Fahrenheit) 98.3 deg F (96.8 - 99.1) 01/25/2017 1:43am Temperature (Calculated Celsius) 36.42063 degrees C (36.0 - 37.3) 01/25/2017 1:43am Pulse Rate (adult) 74 bpm (60 - 100) 01/25/2017 1:43am Respiratory Rate 18 breaths/min (10 - 20) 01/25/2017 1:43am O2 Sat by Pulse Oximetry 97 % (90 - 100) 01/25/2017 1:43am Blood Pressure 112/64 mm Hg 01/25/2017 1:43am Height (Feet) 5 feet 01/24/2017 11:08pm Height (Inches) 7.00 inches 01/24/2017 11:08pm Weight (Kilograms) 164.200 kg 01/24/2017 11:08pm Body Mass Index (BMI) 56.0 01/24/2017 11:08pm Results Laboratory Results Test Name Result Units Flags Reference Collection Date/Time Result Date/ Time Comments D-Dimer 1362 NG/ML H 0-230 11/10/2016 11:54pm 11/11/2016 12:15am <230 NG/ML D-DU=PRESUMPTIVE NEGATIVE FOR PE OR DVT >230 NG/ML D-DU=ADDITIONAL EVAL FOR PE OR DVT RECOMMENDED Troponin I < 0.012 ng/ml 0-0.12 01/16/2017 11:59pm 01/17/2017 12:24am Troponin values with a difference of 55% increase from orginal troponin value represent a true biological DELTA value. (%increase Calc=Orginal Troponin value, divided by subsequent Troponin value, multiplied by 100) White Blood Count 8.1 T/MM3 4.5-11.0 01/24/2017 11:57pm 01/25/2017 12: 04am Red Blood Count 4.12 M/MM3 4.00-5.20 01/24/2017 11:57pm 01/25/2017 12: 04am Hemoglobin 9.7 GM/DL L 12-16 01/24/2017 11:57pm 01/25/2017 12:04am Hematocrit 31.7 % L 36-46 01/24/2017 11:57pm 01/25/2017 12:04am Mean Corpuscular Volume 76.9 UM3 L 80-100 01/24/2017 11:57pm 01/25/2017 12:04am Mean Corpuscular Hemoglobin 23.5 UUG L 26-34 01/24/2017 11:57pm 2016 12:04am Mean Corpuscular Hemoglobin Concent 30.6 GM/DL L 31-37 01/24/2017 11: 57pm 01/25/2017 12:04am RDW Standard Deviation 55.4 FL H 36.9-50.2 01/24/2017 11:57pm 2016 12:04am Platelet Count 264 T/MM3 130-400 01/24/2017 11:57pm 01/25/2017 12:04am Mean Platelet Volume 11.3 UM3 9.4-12.4 01/24/2017 11:57pm 01/25/2017 12 :04am Neutrophils (%) (Auto) 63.4 % 33-66 01/24/2017 11:57pm 01/25/2017 12: 04am Lymphocytes (%) (Auto) 30.5 % 23-45 01/24/2017 11:57pm 01/25/2017 12: 04am Monocytes (%) (Auto) 4.4 % 0-9.0 01/24/2017 11:57pm 01/25/2017 12:04am Eosinophils (%) (Auto) 1.4 % 0-4 01/24/2017 11:57pm 01/25/2017 12:04am Basophils (%) (Auto) 0.2 % 0-2 01/24/2017 11:57pm 01/25/2017 12:04am Immature Granulocyte % (Auto) 0.1 % 0.0-0.5 01/24/2017 11:57pm 2016 12:04am Absolute Neutrophils (auto) 5.1 T/MM3 1.8-7.7 01/24/2017 11:57pm 2016 12:04am Absolute Lymphocytes (auto) 2.5 T/MM3 1-4.8 01/24/2017 11:57pm 2016 12:04am Absolute Monocytes (auto) 0.4 T/MM3 0-0.8 01/24/2017 11:57pm 2016 12:04am Absolute Eosinophils (auto) 0.1 T/MM3 0-0.5 01/24/2017 11:57pm 2016 12:04am Absolute Basophils (auto) 0.0 T/MM3 0-0.2 01/24/2017 11:57pm 2016 12:04am Absolute Immature Granulocyte (auto 0.01 T/MM3 0.00-0.03 01/24/2017 11: 57pm 01/25/2017 12:04am Prothromb Time International Ratio 1.63 H 0.76-1.04 01/24/2017 11:56pm 01/25/2017 12:06am THERAPUTIC RANGE=2.00-3.00 FOR ANTI-THROMBOSIS THERAPUTIC RANGE=2.50-3.50 FOR IMPLANTED VALVE Icterus Index < 2 0-7 01/24/2017 11:56pm 01/25/2017 12:11am Chemistry Specimen Hemolysis < 15 0-25 01/24/2017 11:56pm 01/25/2017 12:11am 0-25: Specimen Exhibited No Hemolysis. Turbidity < 20 0-20 01/24/2017 11:56pm 01/25/2017 12:11am Sodium Level 144 MEQ/L 134-144 01/24/2017 11:56pm 01/25/2017 12:11am Potassium Level 3.9 MEQ/L 3.6-5 01/24/2017 11:56pm 01/25/2017 12:11am Chloride Level 103 MEQ/L 98-107 01/24/2017 11:56pm 01/25/2017 12:11am Carbon Dioxide Level 27 MEQ/L 22-30 01/24/2017 11:56pm 01/25/2017 12: 11am Anion Gap 14 MEQ/L 5-15 01/24/2017 11:56pm 01/25/2017 12:11am Blood Urea Nitrogen 15.0 MG/DL 7-17 01/24/2017 11:56pm 01/25/2017 12: 11am Creatinine 0.9 MG/DL 0.7-1.2 01/24/2017 11:56pm 01/25/2017 12:11am BUN/Creatinine Ratio 17 RATIO 6-26 01/24/2017 11:56pm 01/25/2017 12: 11am Glomerular Filtration Rate Calc 75 01/24/2017 11:56pm 01/25/2017 12 :11am Glucose Level 96 MG/DL 65-110 01/24/2017 11:56pm 01/25/2017 12:11am Calculated Osmolality 278 MOSM/KG 261-280 01/24/2017 11:56pm 2016 12:11am Calcium Level 8.9 MG/DL 8.4-10.2 01/24/2017 11:56pm 01/25/2017 12:11am Total Bilirubin 0.60 MG/DL 0.20-1.30 01/24/2017 11:56pm 01/25/2017 12: 11am Alkaline Phosphatase 56 U/L 38-126 01/24/2017 11:56pm 01/25/2017 12: 11am Total Protein 7.7 G/DL 6.3-8.2 01/24/2017 11:56pm 01/25/2017 12:11am Albumin 4.1 G/DL 3.5-5.0 01/24/2017 11:56pm 01/25/2017 12:11am Globulin 3.6 G/DL 2.4-3.6 01/24/2017 11:56pm 01/25/2017 12:11am Albumin/Globulin Ratio 1.1 RATIO 1.1-2.2 01/24/2017 11:56pm 01/25/2017 12:11am Aspartate Amino Transf (AST/SGOT) 12 U/L L 14-36 01/24/2017 11:56pm 03/2017 12:11am Alanine Aminotransferase (ALT/SGPT) 35 U/L 9-52 01/24/2017 11:56pm 03/2017 12:11am Lipase 67 U/L 23-300 01/24/2017 11:56pm 01/25/2017 12:11am Urine Collection Type CLEANCATCH-MIDSTREAM 01/25/2017 1:11am 2016 1:18am Urine Color YELLOW YELLOW 01/25/2017 1:11am 01/25/2017 1:18am Urine Turbidity CLEAR CLEAR 01/25/2017 1:11am 01/25/2017 1:18am Urine Specific [place] 1.020 1.015-1.025 01/25/2017 1:11am 2016 1:18am Urine pH 6.0 5.0-8.0 01/25/2017 1:11a01/25/2017 1:18am Urine Leukocyte Esterase NEGATIVE NEGATIVE 01/25/2017 1:11am 2016 1:18am Urine Nitrite NEGATIVE NEGATIVE 01/25/2017 1:11a01/25/2017 1:18am Urine Protein NEGATIVE NEGATIVE 01/25/2017 1:11a01/25/2017 1:18am Urine Glucose (UA) NEGATIVE NEGATIVE 01/25/2017 1:11am 01/25/2017 1: 18am Urine Ketones NEGATIVE NEGATIVE 01/25/2017 1:11a01/25/2017 1:18am Urine Urobilinogen 0.2 EU/DL NORMAL 01/25/2017 1:11am 01/25/2017 1: 18am Urine Bilirubin NEGATIVE NEGATIVE 01/25/2017 1:11am 01/25/2017 1: 18am Urine Blood NEGATIVE NEGATIVE 01/25/2017 1:11am 01/25/2017 1:18am Urinalysis Comment MICROSCOPIC NOT IND. 01/25/2017 1:11am 2016 1:18am Procedures Procedure Status Date Provider(s) Routine venipuncture Completed 11/10/16 Chest x-ray 2vw frontal&latl Completed 11/10/16 Ct angiography chest Completed 11/10/16 Metabolic panel total ca Completed 11/10/16 Complete cbc w/auto diff wbc Completed 11/10/16 Fibrin degradation quant Completed 11/10/16 Electrocardiogram tracing Completed 11/10/16 Ther/proph/diag inj sc/im Completed 11/10/16 Ther/proph/diag inj sc/im Completed 11/10/16 Emergency dept visit Completed 11/10/16 [id number]"INJECTION, ENOXAPARIN SODIUM, 10 MG" Completed 11/10/16 [id number]"INFUSION, NORMAL SALINE SOLUTION , 250 CC" Completed 11/10/16 [id number]"LOW OSMOLAR CONTRAST MATERIAL, 300-399 MG/ML IODINE C [...] Discharge/Depart Date Attending Provider Departed Emergency Room [facility] 01/24/17 11:04pm 01/25/17 1: 43am TONEY VICTORIA DO Departed Emergency Room [facility] 01/16/17 11:34pm 01/17/17 2: 45am TONEY VICTORIA DO Departed Emergency Room [facility] 12/19/16 12:55pm 12/19/16 3: 05pm ROSHNI ALBA MD Departed Emergency Room [facility] 12/09/16 8:49pm 12/09/16 10: 30pm ROSHNI ALBA MD Departed Emergency Room [facility] 12/07/16 1:51pm 12/07/16 3: 14pm ROSHNI ALBA MD Departed Emergency Room [facility] 12/06/16 10:25pm 12/06/16 11: 14pm BENI DAVIDSON MD Departed Emergency Room [facility] 12/01/16 9:30pm 12/01/16 11: 59pm ROSHNI ALBA MD Departed Emergency Room [facility] 11/30/16 6:25pm 11/30/16 8: 25pm LUCIE GONZALES DO Departed Emergency Room [facility] 11/29/16 10:18am 11/29/16 11: 40am TONEY VICTORIA DO Departed Emergency Room [facility] 11/27/16 8:12pm 11/27/16 10: 34pm BENI DAVIDSON MD Departed Emergency Room [facility] 11/20/16 3:54pm 11/20/16 3: 58pm TONEY VICTORIA DO Departed Emergency Room [facility] 11/10/16 10:58pm 11/11/16 2: 37am RILEY HYLTON MD Recent Diagnosis
--- NOTE | 2017-02-04 22:16 | NUR ---
STATUS PT REPORTS SHE IS GOING TO LEAVE AND GO TO [place] STATES SHE GOOGLED IT AND THEY HAVE NO WAIT TIME RIGHT NOW REPORTS HER BACK HAS BEEN HURTING HER IS WHY SHE CAME DOES NOT WANT TO WAIT FOR TRIAGE
--- NOTE | 2017-02-04 22:17 | NUR ---
[facility] PT SIGNED [facility] FORM AND LEFT AMBULATORY
[2017-02-05] MEDS ORDERED: FERR325C PO (08:17)
[2017-02-05] MEDS ORDERED: CEPH-583 PO (11:27)
== END 2017-02-04 22:17 | disposition left against medical advice (07) ==
LOC: ED 21:37
DX: Z53.21 Procedure and treatment not carried out due to patient leaving prior to being seen by health care provider (principal)

== ENCOUNTER 2017-02-05 08:06 | Emergency (ER) | payer BC ==
[~2017-02-05] VITALS: Ht 170.2 cm; Wt 165.1 kg
[2017-02-05 08:08] VITALS: TEMP 98.2
[2017-02-05 08:12] VITALS: Ht 170.2 cm; Wt 165.1 kg
[2017-02-05] MEDS ORDERED: FERR325C PO (08:17)
--- NOTE | 2017-02-05 09:00 | NUR ---
REPORT TO JOSHUA DC
--- NOTE | 2017-02-05 09:10 | NUR ---
UPDATE PATIENT LYING IN BED RESTING. RELEASE FOR RECORDS FROM [facility] SIGNED. PATIENT DENIES ANY NEEDS AT THIS TIME.
--- OUTSIDE RECORDS SUMMARY | 2017-02-05 09:19 | XMS REPORT | Continuity of Care Document ---
Author Author [facility] Organization [facility] Address Unknown Phone Unavailable Care Team Providers Care Solid Waste Technician Name Role Phone CORREIAMISSY RUVALCABA Primary Care Physician [phone] Insurance Providers Guarantor Anusha Almazan Address [address] [place] [address] Email [email or web address] [facility] Policy Number [id number] Subscriber's Name Almazan,Anusha [place] Relationship 18 Self Group Number [id number] Chief Complaint and Reason for Visit Chief Complaint Back Pain or Injury Reason for Visit Patient left without being seen Problems Active Problems Medical Problem Onset Date [...] Unknown Patient left without being seen Unknown Patient left without being seen Unknown [...] Cap Oral Every 6 Hours Discontinued Hydrocodone/Acetaminophen (S[place] 5-325 Tablet) 5-325 Tablet, 1 Tab Oral [...] No 01/24/2017 11:08pm Not Applicable Not Applicable Hospital Discharge Instructions No hospital discharge instructions. Plan of Care Discharge Date 02/04/17 10:17pm Disposition 07 LEFT W/O BEING SEEN Condition at Discharge Left Without Being Seen Prescriptions See Medication Section Referrals MISSY CORREIA Address: [address] [place] [id number] NILES RIGGINS APRN Address: [address] [place] [address] [id number] Functional Status No functional status results. Allergies, [...] - 99.1) 01/25/2017 1:43am Temperature (Calculated Celsius) 36.53166 degrees C (36.0 - 37.3) 01/25/2017 1:43am [...] 01/25/2017 12:11am Urine Collection Type CLEANCATCH-MIDSTREAM 01/25/2017 1:11a2016 1:18am Urine Color YELLOW YELLOW 01/25/2017 1:01/25/2017 1:18am Urine Turbidity CLEAR CLEAR 01/25/2017 1:01/25/2017 1:18am Urine Specific Celeste 1.020 1.015-1.025 01/25/2017 1:11am 2016 1:18am Urine pH 6.0 5.0-8.0 01/25/2017 1:01/25/2017 1:18am Urine Leukocyte Esterase NEGATIVE NEGATIVE 01/25/2017 1:11am 2016 1:18am Urine Nitrite NEGATIVE NEGATIVE 01/25/2017 1:11am 01/25/2017 1:18am Urine Protein NEGATIVE NEGATIVE 01/25/2017 1:11am 01/25/2017 1:18am Urine Glucose (UA) NEGATIVE NEGATIVE 01/25/2017 1:11am 01/25/2017 1: 18am Urine Ketones NEGATIVE NEGATIVE 01/25/2017 1:11am 01/25/2017 1:18am Urine Urobilinogen 0.2 EU/DL NORMAL 01/25/2017 1:11am 01/25/2017 1: 18am Urine Bilirubin NEGATIVE NEGATIVE 01/25/2017 1:11a01/25/2017 1: 18am Urine Blood NEGATIVE NEGATIVE 01/25/2017 [...] Completed 11/10/16 Emergency dept visit Completed 11/10/16 689992"INJECTION, ENOXAPARIN SODIUM, 10 MG" Completed 11/10/16 [id number]"INFUSION, NORMAL SALINE SOLUTION , 250 CC" Completed 11/10/16 [id number]"LOW OSMOLAR CONTRAST MATERIAL, 300-399 MG/ML IODINE C [...] Completed 12/09/16 Emergency dept visit Completed 12/19/16 Routine venipuncture Completed 01/24/17 Ct abd & pelvis w/o contrast Completed 01/24/17 Comprehen metabolic panel Completed 01/24/17 Urinalysis auto w/o scope Completed 01/24/17 Assay of lipase Completed 01/24/17 Chorionic gonadotropin assay Completed 01/24/17 Complete cbc w/auto diff wbc Completed 01/24/17 Prothrombin time Completed 01/24/17 Emergency dept visit Completed 01/24/17 Encounters Encounter Location Arrival/Admit Date Discharge/Depart Date Attending Provider Departed Emergency Room [facility] 02/04/17 9:37pm 02/04/17 10: 17pm LUCIE GONZALES DO Departed Emergency Room [facility] 01/24/17 11:04pm 01/25/17 1: 43am TONEY VICTORIA DO Departed Emergency Room [facility] 01/16/17 11:34pm 01/17/17 2: 45am TONEY VICTORIA DO Departed Emergency Room [facility] 12/19/16 12:55pm 12/19/16 3: 05pm ROSHNI ALBA MD Departed Emergency Room [facility] 12/09/16 8:49pm 12/09/16 10: 30pm ROSHNI ALBA MD Departed Emergency Room [facility] 12/07/16 1:51pm 12/07/16 3: 14pm ROSHNI ALBA MD Departed Emergency Room [facility] 12/06/16 10:25pm 12/06/16 11: 14pm BENI DAVIDSON MD Departed Emergency Room [facility] 12/01/16 9:30pm 12/01/16 11: 59pm ROSHNI ALBA MD Departed Emergency Room [facility] 11/30/16 6:25pm 11/30/16 8: 25pm LUCIE GONZALES DO Departed Emergency Room [facility] 11/29/16 10:18am 11/29/16 11: 40am TONEY VICTORIA DO Departed Emergency Room [facility] 11/27/16 8:12pm 11/27/16 10: 34pm BNEI DAVIDSON MD Departed Emergency Room [facility] 11/20/16 3:54pm 11/20/16 3: 58pm TONEY VICTORIA DO Departed Emergency Room [facility] 11/10/16 10:58pm 11/11/16 2: 37am RILEY HYLTON MD Recent Diagnosis
--- NOTE | 2017-02-05 10:11 | NUR ---
PROVIDER DR ALBA AT BEDSIDE
--- NOTE | 2017-02-05 10:16 | ERPDOC ---
Departure Disposition Decision Date: February 05, 2017 Disposition Decision Time: 11:26 Disposition: 01 DISCHARGED HOME, SELF-CARE Impression Impression Impression: Primary Impression: Abdominal abscess Additional Impression: Open wound Severity: Moderate Condition: Stable Seen By: Physician only Referrals: MISSY CORREIA (PCP) NILES RIGGINS APRN (Family) Patient Instructions: Abdominal Pain (ED) Problems/Meds/Labs Reviewed?: Yes Medications reviewed and manag: Yes Mental Status: Alert, Oriented Scripts Cephalexin (Keflex) 500 Mg Capsule 2 CAP PO BID, #40 CAP Prov: ROSHNI ALBA MD 02/05/17 HPI - Abdominal Pain General Chief Complaint: Abdominal Pain Stated Complaint: ABD PAIN, CSECTION INFECTION Time Seen by Provider: 09:06 HPI - Abdominal Pain Initial Comments 18-year-old female presents for follow-up on wound care of her abdomen. She had a which did not heal well on the incision became infected with an abscess. She then had DVT, has had significant issues since the surgery. She is on a wound VAC, up until last few days, they are now letting it sit drive to see if it will continue to heal. She felt lightheaded, tachycardic, nauseated last night and this morning. The 2 times previous that she has developed an infection in the wound, she's had the same sensations that she did last night and this morning. She is very worried about that. She did go to [facility] last night had blood drawn. However we are having difficulty getting was labs. She has no fever today, does still have a little bit of nausea and lightheadedness. Allergies: Coded Allergies: brompheniramine (Verified Allergy, Unknown, 02/05/17) cefaclor (Verified Allergy, Unknown, 02/05/17) ceftriaxone (Verified Allergy, Unknown, 02/05/17) morphine (Verified Allergy, Unknown, ITCHING, 02/05/17) nalbuphine (Verified Allergy, Unknown, 02/05/17) phenylephrine (Verified Allergy, Unknown, 02/05/17) Past History Patient Surgical History Csection Past Medical History Respiratory: pulmonary embolus Surgical History Reproductive/: , hysterectomy Social History Does patient use chewing tobac: No Second Hand Exposure: No Substance Use Type: does not use Alcohol Intake: none Physical Exam General Vitals and Pain First Documented Vital Signs Date Time Temp Pulse Resp B/P Pulse Ox O2 Delivery O2 Flow Rate FiO2 02/05/17 08:08 98.2 62 16 102/54 100 Room Air Weight: Kilograms: 165.100 Height (feet): 5 Height (inches): 7.00 Triage Pain Scale: Differential Diagnoses Considering: Other (abscess midline abdomen, cellulitis, poor wound healing, dehydration) Progress Results/Orders Orders Procedure Category Date Status Time Case Management CONS 02/05/17 Transmitted Consult Cbc W/Auto LAB 02/05/17 Complete Diff-Reflex Manual Cmp - Comprehensive LAB 02/05/17 Complete Metabolic C-Reactive Protein - LAB 02/05/17 Complete CRP 10:16 Lab Results Laboratory Tests Test 02/05/17 10:34 White Blood Count 6.4T/MM3 Red Blood Count 4.64M/MM3 Hemoglobin 10.8GM/DL Hematocrit 34.8% Mean Corpuscular Volume 75.0UM3 Mean Corpuscular Hemoglobin 23.3UUG Mean Corpuscular Hemoglobin Concent 31.0GM/DL RDW Standard Deviation 53.1FL Platelet Count 279T/MM3 Mean Platelet Volume 11.4UM3 Immature Granulocyte % (Auto) 0.0% Neutrophils (%) (Auto) 74.5% Lymphocytes (%) (Auto) 19.8% Monocytes (%) (Auto) 4.6% Eosinophils (%) (Auto) 0.9% Basophils (%) (Auto) 0.2% Absolute Immature Granulocyte (auto 0.00T/MM3 Absolute Neutrophils (auto) 4.8T/MM3 Absolute Lymphocytes (auto) 1.3T/MM3 Absolute Monocytes (auto) 0.3T/MM3 Absolute Eosinophils (auto) 0.1T/MM3 Absolute Basophils (auto) 0.0T/MM3 Turbidity < 20 Sodium Level 144MEQ/L Potassium Level 4.2MEQ/L Chloride Level 105MEQ/L Carbon Dioxide Level 25MEQ/L Anion Gap 14MEQ/L Blood Urea Nitrogen 17.0MG/DL Creatinine 0.8MG/DL Glomerular Filtration Rate Calc 85 BUN/Creatinine Ratio 21RATIO Glucose Level 90MG/DL Calculated Osmolality 279MOSM/KG Calcium Level 9.1MG/DL Total Bilirubin 0.80MG/DL Icterus Index < 2 Aspartate Amino Transf (AST/SGOT) 23U/L Alanine Aminotransferase (ALT/SGPT) 36U/L Alkaline Phosphatase 65U/L C-Reactive Protein 15.9MG/L Total Protein 7.7G/DL Albumin 4.0G/DL Globulin 3.7G/DL Albumin/Globulin Ratio 1.1RATIO Chemistry Specimen Hemolysis 37 Progress Progress CBC returned normal, patient has slightly elevated CRP. At this point she is anxious and I recommended she go back on an antibiotic. Started on Keflex 500 mg 2 tabs twice daily. She'll also start on a probiotic, and follow her INR to make sure that we do not cause C. difficile or cause a Coumadin issue. ROSHNI ALBA MD February 05, 2017 10:16
--- NOTE | 2017-02-05 10:56 | NUR ---
ACTIVITY PATIENT AMBULATORY TO RESTROOM, TOLERATES ACTIVITY FAIR.
[2017-02-05 11:00] LABS: ALBUMIN/GLOBULIN RATIO 1.1 RATIO (1.1-2.2); ALKALINE PHOSPHATASE 65 U/L (38-126); ALT (SGPT) 36 U/L (9-52); ANION GAP 14 MEQ/L (5-15); AST (SGOT) 23 U/L (14-36); BUN/CREATININE RATIO 21 RATIO (6-26); CALCIUM 9.1 MG/DL (8.4-10.2); CHLORIDE 105 MEQ/L (98-107); CO2 - CARBON DIOXIDE 25 MEQ/L (22-30); CREATININE 0.8 MG/DL (0.7-1.2); GLOMERULAR FILTRATION RATE 85; GLUCOSE 90 MG/DL (65-110); POTASSIUM 4.2 MEQ/L (3.6-5); SODIUM 144 MEQ/L (134-144); TOTAL PROTEIN 7.7 G/DL (6.3-8.2)
[2017-02-05 11:14] LABS: BASOPHILS % (AUTO) 0.2 % (0-2); EOSINOPHILS # (AUTO) 0.1 T/MM3 (0-0.5); EOSINOPHILS % (AUTO) 0.9 % (0-4); HCT - HEMATOCRIT 34.8 % (36-46); HGB - HEMOGLOBIN 10.8 GM/DL (12-16); LYMPHOCYTES # (AUTO) 1.3 T/MM3 (1-4.8); LYMPHOCYTES % (AUTO) 19.8 % (23-45); MEAN CORPUSCULAR HGB 23.3 UUG (26-34); MEAN PLATELET VOLUME 11.4 UM3 (9.4-12.4); MONOCYTES # (AUTO) 0.3 T/MM3 (0-0.8); MONOCYTES % (AUTO) 4.6 % (0-9.0); NEUTROPHILS #(AUTO)-ABSOLUTE 4.8 T/MM3 (1.8-7.7); NEUTROPHILS % (AUTO) 74.5 % (33-66); RED BLOOD COUNT 4.64 M/MM3 (4.00-5.20); WBC - WHITE BLOOD COUNT 6.4 T/MM3 (4.5-11.0)
[2017-02-05] MEDS ORDERED: CEPH-583 PO (11:27)
--- NOTE | 2017-02-05 11:27 | NUR ---
KACI ZAMORA WITH SOCIAL WORK AT BEDSIDE
--- NOTE | 2017-02-05 11:30 | NUR ---
ED CM CONSULT THIS WORKER MET WITH PT ON THIS DATE IN THE EMERGENCY ROOM. THIS WORKER INTRODUCED SELF AND ROLE OF CASE MANAGEMENT. THIS WORKER INQUIRED REGARDING MULTIPLE ED VISITS AND ANY NEEDS. PT WAS THANKFUL FOR THIS WORKER'S VISIT. PT REPORTED THAT SINCE HER IN SEPTEMBER SHE HAS HAD MULTIPLE INFECTIONS. PT REPORTED THAT SHE GOES TO WOUND CLINIC IN [place] THREE TIMES PER WEEK. PT EXPLAINED THAT SHE HAS GOOD FAMILY SUPPORT AND HAS MOVED IN WITH GRANDPARENTS SO THAT THEY COULD HELP OUT WITH THE CHILDREN. PT REPORTED THAT SHE HAS GOOD INSURANCE AND ABILITY TO AFFORD ALL MEDICATIONS. PT EXPRESSED FRUSTRATION AND TEARS REGARDING FREQUENT MEDICAL NEEDS AND "NOT FEELING WELL." THIS WORKER OFFERED TO MAKE A REFERRAL TO [facility] AT [facility] (PT'S PRIMARY CARE PHYSICIAN). PT WAS AGREEABLE TO THIS REFERRAL. THIS WORKER ALSO PROVIDED THIS WORKER'S CONTACT INFORMATION TO PT AND ENCOURAGED TO CALL WITH ANY NEEDS. THIS WORKER CALLED AND SPOKE TO DANIELLA AND MADE REFERRAL FOR SERVICES. DANIELLA WILL PLAN TO CALL PT AND FOLLOW UP. Addendum: 02/05/17 at 1416 by SERA CLEMONS Amended: Links added.
[2017-02-05 11:58] VITALS: BP 115/67; PULSE 63; RESP 16; O2SAT 99
--- NOTE | 2017-02-05 11:58 | NUR ---
DEPART PT IS DISCHARGED AT THIS TIME, INSTRUCTIONS ARE REVIEWED AND UNDERSTANDING IS VOICED. PT LEAVES AMBULATORY.
== END 2017-02-05 11:58 | disposition home or self-care (01) ==
LOC: ED 08:06
DX: O86.0 Infection of obstetric surgical wound (principal); L02.211 Cutaneous abscess of abdominal wall; Z79.01 Long term (current) use of anticoagulants
CPT/HCPCS: 36415; 80053; 85025; 86140

== ENCOUNTER 2017-03-25 17:46 | Observation (INO) ==
[2017-03-25] MEDS ORDERED: SALINE FLUSH 10ml SYRINGE IVF PRN (17:56)
[2017-03-25] MEDS ORDERED: NS 1,000 ML IV ONE (17:57)
[2017-03-25] MEDS ORDERED: ONDANSETRON 4 MG/2 ML INJECTION IVP ONE (17:57)
[2017-03-25] MEDS ORDERED: KETOROLAC 30 MG/ML INJECTION IVP ONE (17:57)
[2017-03-25] MEDS ORDERED: ERTAPENEM 1 G in NS 100 ML IV ONE (18:04)
--- NOTE | 2017-03-25 18:07 | Emergency Department Report ---
Abdominal Pain HPI - General Chief Complaint: Abdominal Pain Stated Complaint: poss appendicitis Time Seen by Provider: 03/25/17 17:53 Source: patient Mode of arrival: ambulatory Limitations: no limitations - History of Present Illness HPI narrative: She began having sharp diffuse low abdominal pain last night, who was able to make it through the night to see her primary care provider today at [facility]. At [facility] and was felt that the patient had some acute complication possibly one of her several surgeries that she's had this year, and a CT scan was obtained at [address] today [address] [facility] scan showed an enlarged appendix with questionable inflammatory change around the appendix, but was limited due to the patient's large body habitus. She was referred to the ER to "get some lab done and maybe have a surgeon take a look at her." Currently the patient has no significant complaints other than mild diffuse low abdominal pain, and does not appear to have an acute abdomen. She is past medical includes in September with subsequent hysterectomy, also subsequent pulmonary embolus and sepsis. 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 Onset (ago): hour(s) Consistency: constant Location: LLQ, RLQ, suprapubic Severity: moderate Quality: sharp - Related Data Home Medications Medication Instructions Recorded Confirmed Escitalopram [Lexapro] 10 mg PO DAILY 03/25/17 03/25/17 HydrOXYzine [Atarax] 25 mg PO TID PRN 03/25/17 03/25/17 Allergies Allergy/AdvReac Type Severity Reaction Status Date / Time brompheniramine Allergy Unknown Verified 03/25/17 17:55 cefaclor Allergy Unknown Verified 03/25/17 17:55 ceftriaxone Allergy Unknown Verified 03/25/17 17:55 morphine Allergy Unknown ITCHING Verified 03/25/17 17:55 nalbuphine Allergy Unknown Verified 03/25/17 17:55 phenylephrine Allergy Unknown Verified 03/25/17 17:55 Review of Systems All systems: reviewed and negative except as stated PFSH Patient Stated Medical History Pulmonary Embolism Yes: HX OF Diabetes Mellitus Type 2 Yes Gastroesophageal Reflux Yes Disease Other Hematologic Yes: ON COUMADIN FOR P.E. Cellulitis Yes Sepsis Yes Depression Yes System abdominal wound status post /chest Surgical History: . Emergency hysterectomy. Persistent vertical low abdominal incision wound - Social History Smoking status: Never smoker Physical Exam - Limitations Limitations: no limitations - General General appearance: alert - Normal Exams: Head:: Normocephalic without trauma Eyes:: Pupils are PERRLA w/ EOMI, No scleral icterus, irritation, or foreign bodies noted ENMT:: No facial trauma, nasal exudates, pharyngeal erythema, or exudates are noted Neck:: Full range of motion, without adenopathy, JVD, bruits or thyromegaly Chest/Respirations:: Clear all ledesma, with good airflow, and symmetry bilaterally Cardiovascular:: Regular rate and rhythm, without murmur or gallop, Pulses 2+ all extremities, capillary refill, <2 seconds all extremities Lymphatic:: No lymphadenopathy, or lymphedema noted Musculoskeletal:: No tenderness, or deformity noted, good range of motion, all extremities Integumentary:: No rashes, hives, or bruising noted, hair and nails, without abnormality - Abdominal Exam Abdominal exam: Present: soft, tenderness (100 diffuse low abdominal tenderness , right lower quadrant shows the greatest, but patient has no peritoneal signs, no guarding or rebounding at this time). Absent: distention, guarding, rebound , Paiz's sign, Rovsing's sign, mass, bruit, pulsatile mass, hernia Course Vital Signs Temperature 98.0 F 03/25/17 17:48 Pulse Rate 73 03/25/17 17:48 Respiratory Rate 18 03/25/17 17:48 Blood Pressure 167/99 H 03/25/17 17:48 Pulse Oximetry 100 03/25/17 17:48 Temperature 98.0 F 03/25/17 17:48 Pulse Rate 73 03/25/17 17:48 Respiratory Rate 18 03/25/17 17:48 Blood Pressure 167/99 H 03/25/17 17:48 Pulse Oximetry 100 03/25/17 17:48 Abdominal Pain - MDM Narrative Medical decision making narrative: CT of the abdomen shows a moderately enlarged appendix with questionable. Appendiceal inflammatory change. I discussed the case with Dr. Leach, we will admit the patient to his service for outpatient treatment, give fluids, pain and nausea management, and he will see the patient first thing in the morning for recheck, comparing tonight's lap with tomorrow's as well as the patient's exam tonight with tomorrow. Patient is aware of this plan, and is amiable to it - Lab Data Result diagrams: 03/25/17 18:24 03/25/17 18:24 Disposition Clinical Impression: Acute appendicitis Disposition: 02 To [facility] Acute Care Condition: Stable - Seen By: physician
[2017-03-25] MEDS ORDERED: ONDANSETRON 4 MG/2 ML INJECTION IVP PRN (18:34)
[2017-03-25] MEDS ORDERED: HYDROMORPHONE 2 MG/ML INJECTION IVP PRN (18:34)
[2017-03-25] MEDS: NS 1,000 ML IV SCH (21:59)
[2017-03-26] MEDS: NS 1,000 ML IV SCH (11:46)
[2017-03-26 14:55] VITALS: RESP 18; O2SAT 100
--- NOTE | 2017-03-26 15:16 | History and Physical ---
FINDINGS Mrs. Almazan is a 26-year-old female whom I was asked to see last evening through the emergency room as a result of the patient's history and physical findings of abdominal discomfort in conjunction with a questionable abnormal CT scan. The patient does have a fairly significant history. Patient informs me that in September of this year she had underwent a and developed wound complication requiring two additional surgical debridements. Following her C- section she did develop a pulmonary emboli. Patient states she has had a " rough year" but recently has been doing quite well. The patient states that yesterday, however, she had awakened and began to notice that there was a component of some lower abdominal discomfort. Patient states that she "coughed " and noted that her entire lower abdomen was fairly tender. Patient states that she tried to continue with her normal activities yesterday but began to notice a component of ongoing discomfort throughout her abdomen. The pain was not specifically located in one location. As a result of her pain, she presented to the emergency room for further evaluation. This morning, the patient states that her pain has essentially resolved. She states she is "feeling better". She does have appetite and is requesting some food. PAST MEDICAL HISTORY Chronic Illness/System disorders: 1. History for anxiety. 2. History for pulmonary emboli. 3. History for borderline diabetes. PAST SURGICAL HISTORY 1. Tonsillectomy. 2. x4. 3. Two prior wound debridements following . MEDICATIONS 1. Lexapro 10 mg p.o. q.d. 2. Atarax 25 mg p.o. t.i.d./p.r.n. severe anxiety. ALLERGIES BROMPHENIRAMINE. CECLOR. ROCEPHIN. MORPHINE. NALBUPHINE. PHENYLEPHRINE. SOCIAL HISTORY The patient denies alcohol and tobacco use. FAMILY HISTORY The patient states that her parents are alive and well. She states that she does have some diabetes within her family. REVIEW OF SYSTEMS Complete review of systems was undertaken with the patient and was essentially negative except as stated above in Findings section and Past Medical History section for constitutional, HEENT, cardiac, respiratory, GI, , musculoskeletal , hematologic/oncologic (history for pulmonary emboli), and psychiatric ( positive for anxiety). PHYSICAL EXAMINATION GENERAL: The patient is a 26-year-old female who this morning did not appear to be in any acute distress. She was sitting upright and quite conversant. VITALS: Temperature 96.6. Pulse 76. Respirations 16. Blood pressure 122/72. SaO2 98% on room air. HEENT: Normocephalic. Pupils are equally round and react to light and accommodation. CHEST: Clear to auscultation bilaterally. HEART: Regular rate and rhythm. Normal S1, S2, without gallops, murmurs or clicks. ABDOMEN: Visualization of the abdomen does reveal it to be fairly protuberant in its overall appearance, i.e. the patient has a component of obesity. The patient does have an open wound involving portion of her prior midline incision from her . This wound is granulated in quite nice up to the surface of the epidermis. The wound is about 3 cm in greatest diameter. Palpation of her abdomen reveals it to be soft and completely nontender. I was able to palpate quite firmly within her right lower quadrant and that did not elicit any element of discomfort. There was no evidence for guarding or rebound. EXTREMITIES: Without clubbing, cyanosis, or edema. NEURO: Cranial nerves II-XII grossly intact. Patient without focal, motor, or sensory deficits. LABORATORY/RADIOGRAPHIC EVALUATION I did obtain a CBC today and her white count is 6.6. Hemoglobin is overall stable at 11.0. I did review her CT scan that revealed some questionable periappendiceal stranding. Given the patient's obesity, there was a fair amount of artifact and it was difficult to evaluate evidence for appendicitis. ASSESSMENT 26-year-old female with history of lower abdominal discomfort that does not appear to be of a surgical nature and is resolving on its own behalf. PLAN I informed the patient it was my clinical intuition that we were not dealing with that of appendicitis. The patient is nontender upon palpation within her right lower quadrant. Her clinical history is not highly suggestive for appendicitis. Her white count is normal at this time. It is my recommendation that we go ahead and slowly advance her diet as tolerated today. If she is tolerating a regular diet today and her abdominal pain has resolved, patient will be discharged this afternoon. [facility] CENTERFausto
[2017-03-26 15:25] VITALS: BP 122/71; PULSE 57; TEMP 97.7
--- NOTE | 2017-03-26 18:40 | Progress Note ---
DATE OF SERVICE 03/26/2017 FINDINGS I did see the patient this evening on rounds. She states that she is feeling well. She has had no element of abdominal pain. She is requesting to go home. EXAM VITAL SIGNS: Afebrile, normotensive. Please refer to EMR. ABDOMEN: Soft, completely nontender. ASSESSMENT 26-year-old female with history of abdominal pain and abnormal CT scan revealing questionable evidence for appendicitis. Patient clinically doing quite well. PLAN Discharge to home. The patient was informed that I do not feel that she had appendicitis. She was instructed to return back to the emergency room or to contact me during business hours if she would develop recurrent abdominal pain. Patient instructed to follow up with her primary care physician within the next week or so in followup. She is to follow up with me, as stated above, on a p.r.n. basis. ANDRES
== END 2017-03-26 16:52 | disposition home or self-care (01) ==
LOC: SRG 17:46 → ED 17:46 → SRG 18:34 → UNDODISOB 03-26 16:52
PROVIDERS: ADMIT Surgery; ATTEND Surgery